=== PATIENT | female | born 1975 | race African-American/Black ===

== ENCOUNTER → 2016-12-02 | Outpatient (CLI) | payer OTHER ==
[~2016-12-02] VITALS: Ht 154.9 cm; Wt 88.1 kg
[~2016-12-02] MED LIST: ATOR-22 PO; ATV/1 PO; CHOL100010 PO; CONJ.6255 PO; CYM/30 PO; DULO60CA44 PO; ISOS30TA3 PO; METO1TAB69 PO; METO50TA16 PO; NRN/600 PO; QUET1TAB32 PO
[2016-12-02 14:28] VITALS: BP 151/90; PULSE 81; Ht 154.9 cm; Wt 88.1 kg
== END | disposition home or self-care (01) ==
LOC: C.NEUR 13:54
PROVIDERS: ATTEND Internal Medicine Pulmonary Disease
DX: G47.30 Sleep apnea, unspecified (principal)

== ENCOUNTER → 2017-01-17 | Outpatient (CLI) | payer OTHER ==
[~2017-01-17] MED LIST changes: +METO100T44 PO; -METO1TAB69 PO
--- NOTE | 2017-01-18 06:10 | PAP/PSG TECHNICIAN REPORT ---
[facility] Manufacturing Clerk Polysomnogram Report Study name: None Report date: 01/18/2017 Study date: 01/17/2017 Referring Physician: Bartolome Parker Pulmonary Name: SALVADOR JORGE Vivek Interpreting Physician: Aquilino Ladd M.D. Date of : 1975 Manufacturing Clerk: Libby Mckoy [facility]. Sex: Female Age: 41 StudyType: PSG Weight: 198 lbs Height: 41 years, Height 5' 1" Neck Circum:13.5inches BMI: 37.41 Medications: Duloxetine HCl 60mg, Gabapentin 600mg, Isosorbide 30mg, Latuda 20mg, Lisinopril 10mg, Metoprolol 100mg, Prempro 0.625-2.5mg, Rexulti 1mg, Simvastatin 20mg, Topiramate 50mg, Vit D3 Patient History Study started on room air with no ETCO2 monitoring in room #8. 41 yr old female here tonight for a possible split study if AHI>10 and there are 2 hours of sleep by the 1:30 am. She was diagnosed with JEFERSON with an AHI of 12.1 in 2014. She was treated with cpap but was noncompliant and stated that she could not use a full-face mask. Her ESS=20/24. Neck circ=13.5inches Parameters Monitored NPSG: E1-M2, E2-M1, Fp1-M2, Fp2-M1, F3-M2, F4-M2, F4-M1, C3-M2, C4-M2, C4-M1, O1-M2, O2-M2, O2-M1, T3-M2, T4-M1, P3-M2, P4-M1, CHIN1, CHIN2, HR, EKG, Legs, PFLOW, SNOR, FLOW, CFLOW, Tidal Volume, THOR, ABDO, SpO2, PLTH, CPRESS, ETCO2 Wave, ETCO2, pH Sleep Architecture Sleep Stages Time at Lights Off 8:47:22 PM STAGES Time (min.) TST (%) Time at Lights On 5:36:22 AM Wake 136.0 -- Total Recording Time (TRT) 529.00 min. N1 3.5 1 Total Sleep Period (TSP) 401.5 min. N2 201.0 51 Total Sleep Time (TST) 393.0min. N3 149.5 38 Awake Time 136.0 min. REM 39.0 10 Wake after Sleep Onset 49.5 min. Sleep Efficiency (SE) 74 % Sleep Onset Latency (LUIS FERNANDO) 86.5 min. Number of Stage 1 Shifts None Awakenings 4 Stage Changes 25 Number of REM periods 2 REM 39.0 10 REM Latency 119.0 min. NREM 354.0 90 Body Position Analysis Supine Right Left Side Prone Vertical Total Sleep Time (min.) 225.4 259.6 0.0 259.63 0.0 0.0 Total Sleep Time (%) 34% 66% 0% 66 0% N/A% Total Sleep Time REM (min.) 5.5 33.5 0.0 None 0.0 0.0 Total Sleep Time NREM (min.) 127.9 226.1 0.0 None 0.0 0.0 Intermittent Wake (min.) 92.0 44.0 0.0 None 0.0 0.0 Total Sleep Period (%) 35% None None None None None Arousals Myoclonus (PLM) * Events Count Index Events Count Index Spontaneous 3 0 Events Awake (PLMW) 71 31.3 Respiratory 2 0.5 Events Asleep w/ Arousal (PLMA) 0 0.0 PLM 0 0 Events Asleep w/o Arousal (PLMS) 20 3.1 Snoring 0 0 Total Asleep 20 3.1 Total 5 1 Total 91 10 Respiratory Analysis * CA OA MA CH H RERA Total Count 0 0 0 0 24 1 24 Index 0.0 0.0 0.0 0 3.7 0 3.8 Mean Duration 0.0 0.0 0.0 0.00 23.4 18.1 23.2 Longest Duration 0.0 0.0 0.0 0.00 0.0 18.1 40.5 Respiratory Event Summary Total Supine ~Supine Right Left Prone REM NREM Apneas Count 0 0 0 0 N/A N/A 0 0 Index 0.0 0 0 0.0 N/A N/A 0 0 Hypopneas (4% Desat) Count 24 4 20 20 N/A N/A 15 9 Index 3.7 1.8 5 4.6 N/A N/A 23.1 1.5 Apneas & All Hypopneas Count 24 4 20 20 N/A N/A 15 9 Index 3.7 2 5 5 N/A N/A 23.1 1.5 Respiratory Events (Food Service Clerk+All Hyp+RERA) Count 24 5 20 20 N/A N/A 15 9 Index 3.8 2 5 4.6 N/A N/A 23.1 1.7 Respiratory Related Arousal Count 2 5 1 1 N/A N/A 0 3 Index 0.5 1 0 0 N/A N/A 0 1 Snoring Analysis Supine Right Left Prone REM NREM Total Snore duration 121.7 min Snores count 1,131 3,691 N/A N/A 426 4,396 4,822 Snore mean duration 1.5 Sec Snores index 509 853 N/A N/A 655.4 745.1 736.2 TST with snoring (%) 31.0% Desaturation Event Summary: Minimum %SpO2 Event Count Mean/Min/Max Duration(sec.) Desaturation Index % Time In Bed > 90 39 31.4 / 6.0 / 60.0 4.6 96.2 86 - 90 1 9.5 / 9.5 / 9.5 3.2 3.6 81 - 85 0 N/A 0.0 0.1 76 - 80 0 N/A 0.0 0.1 71 - 75 0 N/A 0.0 0.0 66 - 70 0 N/A 0.0 0.0 61 - 65 0 N/A 0.0 0.0 56 - 60 0 N/A 0.0 0.0 51 - 55 0 N/A 0.0 0.0 < 50 0 N/A 0.0 0.0 Total REM NREM Awake <50% 0.0 min. 0.0 min. 0.0 min. 0.0 min. 51 - 60% 0.0 min. 0.0 min. 0.0 min. 0.0 min. 61 - 70% 0.0 min. 0.0 min. 0.0 min. 0.0 min. 71 - 80% 0.5 min. 0.3 min. 0.0 min. 0.2 min. 81 - 90% 19.3 min. 3.0 min. 15.9 min. 0.5 min. 91 - 100% 504.2 min. 35.8 min. 338.0 min. 130.5 min. Average 94 94 94 96 Minimum SpO2 77 78 87 77 Desaturation Event Index 4.4 23.1 2.2 4.9 # Desat. Events below 89% 12 6 3 3 Time(%) with Saturation below 89% 0.7 0.4 0.2 0.1 Time(min.) with Saturation below 89% 3.5 2.0 1.1 0.4 Time (mins) REM (mins) NREM (mins) % of TST SpO2 Below 90% 15 9 N6 1.8 SpO2 Below 88% 5 0 0 0 Heart Rate Analysis Min (bpm) Max (bpm) Average (bpm) Awake 62 90 75 NREM 60 90 69 REM 67 86 72 Overall 60 90 70 Supplemental O2 Values Minimum O2 level: None Value Start Time End Time Manufacturing Clerk Comments Mrs. Traylor slept in the right and supine positions. No cardiac arrhythmia or PLM's noted. No bruxism noted. Snoring was noted and scored as a 5 on a scale of 1 through 5. (0=no snoring, 5=snoring loud enough to be heard through a closed door or down the nolen way) She used the restroom once during the night. She stated that she slept well, better than usual. The final report will be interpreted and signed by a sleep physician. The completed physician report will then be placed in the patient medical record. Therapy (cm H2O) 0 TIB (min.) 529.0 TST (min.) 393.0 Sleep Onset (min.) 86.5 REM Onset From Sleep (min.) 119.0 Sleep Efficiency % 74 Wakefulness (%) 26 Wakefulness (min.) 136.0 NREM 1 (%) 1 NREM 1 (min.) 3.5 NREM 2 (%) 51 NREM 2 (min.) 201.0 NREM 3 (%) 38 NREM 3 (min.) 149.5 REM (%) 10 REM (min.) 39.0 # Arousals 5 Arousal Index 1 # Snore 4,822 Snore Index 736.2 AHI 3.7 AHI Supine 2 AHI Non-Supine 5 NREM AHI 1.5 REM AHI 23.1 RDI 3.8 # Obstructive Apnea 0 # Central Apnea 0 # Mixed Apnea 0 # Hypopneas 24 RERAs 1 Total Respiratory Events 26 Time Below SpO2 89% (min.) 3.0 Mean NREM SpO2 (%) 94 Mean REM SpO2 (%) 94 Mean Sleep SpO2 (%) 94 Min NREM SpO2 (%) 87 Min REM SpO2 (%) 78 Position Supine (min.) 225.4 Position Non-supine (min.) 259.6 LM Index Sleep 3.1 LM Index NREM 1.2 LM Index REM 20.0 Mean Heart Rate (bpm) 70 Min Heart Rate (bpm) 60
--- NOTE | 2017-01-19 16:55 | POLYSOMNOGRAPH REPORT ---
CLINICAL DATA: A 41-year-old female with a BMI of 37.[address] Parker with mild sleep apnea in 2015 treated with CPAP but noncompliant because she could not stand a full facemask. SLEEP ARCHITECTURE: Total sleep period was 401.5 minutes. Total sleep time was 393 minutes divided between 354 minutes of non-REM sleep and 39 minutes of REM sleep. Sleep onset latency was delayed at 86.5 minutes. REM latency was 119 minutes. Sleep efficiency was 74%. Wake after sleep onset was 49.5 minutes. Sleep consisted of stage N1 1%, N2 51%, N3 38%, REM 10%. AROUSAL DATA: Five arousals were recorded for an index of 1 per hour. PLM DATA: 20 limb movements during sleep were noted for an index of 3.1 per hour with arousal index of 0. RESPIRATORY DATA: There was no evidence of clinically significant sleep apnea/hypopnea. The AHI was 3.7. There were 24 hypopneic episodes. The mean duration of hypopnea was 23.4 seconds. OXIMETRY DATA: Mild nocturnal hypoxemia. Sleep oxygen theodore was 78% during REM. The mean saturation was 94%. Time below 88% was 5 minutes. EKG: Heart rates ranged from 60-90 beats per minute. No arrhythmias were noted. [facility]VANCED PRACTICE REGISTERED NURSE'S COMMENTS: The patient slept in the right and supine positions. Snoring was severe, rated 5 on a scale of 1-5. IMPRESSION: No evidence of clinically significant sleep apnea/hypopnea, nocturnal hypoxemia or abnormal limb movements during sleep to explain this patient's symptoms. RECOMMENDATIONS: The patient should continue to practice good sleep hygiene. Treatment with nasal steroids for snoring may be of benefit. Clinical correlation is needed. ANDREWS
== END | disposition home or self-care (01) ==
LOC: C.NEUR 20:00
PROVIDERS: ATTEND Internal Medicine Pulmonary Disease
DX: G47.30 Sleep apnea, unspecified (principal)

== ENCOUNTER → 2017-01-24 | Outpatient (CLI) | payer OTHER ==
[~2017-01-24] VITALS: Ht 154.9 cm; Wt 88.6 kg
[2017-01-24 15:21] VITALS: BP 170/108; PULSE 109; Ht 154.9 cm; Wt 88.6 kg
== END | disposition home or self-care (01) ==
LOC: C.NEUR 14:44
PROVIDERS: ATTEND Physician Assistant
DX: G47.30 Sleep apnea, unspecified (principal); G47.00 Insomnia, unspecified

== ENCOUNTER → 2017-01-31 | Outpatient (CLI) | payer OTHER ==
--- NOTE | 2017-02-02 17:20 | POLYSOMNOGRAPH REPORT ---
CLINICAL DATA: A 41-year-old female with BMI of 36.84, referred by Dr. Parker for evaluation of sleep apnea. The patient has very erratic sleep. She had a sleep study in 2014, which showed mild BARBARA with an AHI of 12.1, but did not comply with treatment. She had another sleep study several weeks ago which showed an AHI of 3.1. She still has symptoms of sleep apnea and thought that she would sleep better with the home study. On the evening of 02/01/2017, a home sleep apnea test was performed using the [employer] type 3 monitor. RECORDING RESULTS: Total recording time was 8.1 hours. The patient's monitoring time and estimated sleep time was 6.8 hours. RESPIRATORY DATA: DICTATION ENDS HERE.
--- NOTE | 2017-02-02 17:21 | POLYSOMNOGRAPH REPORT ---
CLINICAL DATA: A 41-year-old female with BMI of 36.84, referred by Dr. Parker for evaluation of possible sleep apnea. She has an erratic sleep schedule and states she only sleeps for a maximum of 2 hours and can go days without sleep. She had a sleep study in 2014, which showed mild sleep apnea with an AHI of 12.1, but she was noncompliant with treatment. She had another sleep study several weeks ago that showed an AHI of 3.1. She still had symptoms of sleep apnea and thought a home study would be better for her to do. On the evening of 02/01/2017, a home sleep apnea test was performed using a [employer] type 3 monitor. RECORDING RESULTS: Total recording time was 8.1 hours. The patient's monitoring time and estimated sleep time was 6.8 hours. RESPIRATORY DATA: Mild sleep apnea was documented. The MEJIA was 13.8. There were 35 obstructive, 2 mixed, and 4 central apneic episodes. There were 53 hypopneic episodes. The longest respiratory event was 44 seconds. OXIMETRY DATA: Nocturnal hypoxemia was seen. Oxygen theodore was 73%. Mean saturation was 97%. Time below 89% was 6 minutes. HEART RATE DATA: Heart rates ranged from 61-90 beats per minute. SNORING DATA: Snoring was recorded throughout the night. The patient stated on return of the equipment that she did not feel that she slept all. However, snoring was present throughout the test and apneas and hypopneas were seen especially at the end of the test which may have been during an episode of REM sleep. IMPRESSION: At least mild sleep apnea/hypopnea with nocturnal hypoxemia with an respiratory event index of 13.8 and oxygen theodore of 73%. RECOMMENDATIONS: The patient may benefit from weight loss, use of an oral appliance, or repeat sleep study with CPAP. Clinical correlation is needed. ANDREWS
== END | disposition home or self-care (01) ==
LOC: C.NEUR 09:00
PROVIDERS: ATTEND Physician Assistant
DX: G47.30 Sleep apnea, unspecified (principal); G47.00 Insomnia, unspecified

== ENCOUNTER → 2017-02-04 | Outpatient (CLI) | payer OTHER ==
[~2017-02-04] VITALS: Ht 154.9 cm; Wt 194.2 kg
[2017-02-04 13:18] VITALS: BP 160/95; PULSE 105; Ht 154.9 cm; Wt 194.2 kg
== END | disposition home or self-care (01) ==
LOC: C.NEUR 12:04
PROVIDERS: ATTEND Internal Medicine Pulmonary Disease
DX: G47.33 Obstructive sleep apnea (adult) (pediatric) (principal); G47.00 Insomnia, unspecified; F32.9 Major depressive disorder, single episode, unspecified

== ENCOUNTER → 2017-03-18 | Outpatient (CLI) | payer OTHER ==
--- NOTE | 2017-03-18 16:16 | MAMMOGRAPHY REPORT ---
BILATERAL DIGITAL SCREENING MAMMOGRAM TOMOSYNTHESIS WITH CAD: 03/18/2017 CLINICAL HISTORY: Routine screening. Patient has no complaints. TECHNIQUE: Breast tomosynthesis in addition to standard 2D mammography was performed. Current study was also evaluated with a Computer Aided Detection (CAD) system. COMPARISON: Comparison is made to exams dated: 09/26/2015 mammogram and 09/17/2015 mammogram - [facility]. BREAST COMPOSITION: There are scattered areas of fibroglandular density in both breasts. FINDINGS: No suspicious masses, calcifications, or areas of architectural distortion are noted in ei ther breast. There has been no significant interval change compared to prior exams. IMPRESSION: ACR BI-RADS CATEGORY 1: NEGATIVE There is no mammographic evidence of malignancy. A 1 year screening mammogram is recommended. The pa tient will receive written notification of the results. Approximately 10% of breast cancers are not detected with mammography. A negative mammographic report should not delay biopsy if a clinically suggestive mass is present. Helen Caro M.D. ah/:03/18/2017 15:20:14 Weekend Receptionist: Adele AVENDANO(R)(Jayjay), [facility] letter sent: Normal 1/2 BI-RADS Code: ACR BI-RADS Category 1: Negative
== END | disposition home or self-care (01) ==
LOC: C.MAMM 13:51
PROVIDERS: ATTEND Family Medicine
DX: Z12.31 Encounter for screening mammogram for malignant neoplasm of breast (principal)

== ENCOUNTER → 2017-04-01 | Outpatient (CLI) | payer OTHER ==
[~2017-04-01] VITALS: Ht 154.9 cm; Wt 84.3 kg
[2017-04-01 15:57] VITALS: BP 126/83; PULSE 97; Ht 154.9 cm; Wt 84.3 kg
== END | disposition home or self-care (01) ==
LOC: C.NEUR 14:55
PROVIDERS: ATTEND Physician Assistant
DX: G47.30 Sleep apnea, unspecified (principal)

== ENCOUNTER → 2017-06-02 | Outpatient (CLI) | payer OTHER ==
[~2017-06-02] MED LIST changes: -METO100T44 PO; +METO1TAB69 PO
[2017-06-02 13:30] LABS: HEMATOCRIT 40.1 % (37-47); MEAN CELL VOLUME 90.9 fL (80-100); MEAN CORPUSCULAR HEMOGLOBIN 29.5 pg (25-34); MEAN CORPUSCULAR HGB CONC 32.4 g/dl (32-36); MEAN PLATELET VOLUME 9.9 fL (7.4-10.4); PLATELET COUNT 345 K/uL (130-400); RED BLOOD COUNT 4.41 M/uL (4.2-5.4); WHITE BLOOD COUNT 6.17 K/uL (4.8-10.8)
[2017-06-02 13:49] LABS: ALT/SGPT 21 U/L (12-78); BLOOD UREA NITROGEN 8 mg/dl (7-18); BUN/CREATININE RATIO 7.1 (10-20); CALCIUM 9.4 mg/dl (8.5-10.1); CARBON DIOXIDE 29 mmol/L (21-32); CHLORIDE 109 mmol/L (98-107); CHOLESTEROL 277 mg/dl (0-200); GLUCOSE 84 mg/dl (70-99); POTASSIUM 3.4 mmol/L (3.5-5.1); SODIUM 142 mmol/L (136-145); TRIGLYCERIDES 62 mg/dl (0-150); VERY LOW DENSITY LIPOPROT CALC 12 mg/dl
[2017-06-02 13:59] LABS: ALB/GLOB RATIO 0.9 (0.9-2); ALKALINE PHOSPHATASE 58 U/L (45-117); AST/SGOT 15 U/L (15-37); CHOLESTEROL/HDL RATIO 4.9; FERRITIN 45.4 ng/ml (8.0-388.0); HDL CHOLESTEROL 57 mg/dl; LDL CHOLESTEROL CALCULATED 208 mg/dl
[2017-06-02 14:27] LABS: COMPLETE YES; EOSINOPHIL % 0.9 %; LYMPH ABS # 2.46 K/uL (1.2-3.4); LYMPHOCYTE % 39.8 %; NEUTROPHILS % 26.5 %; TOXIC GRANULATION 1+; VACUOLIZATION 1+; VARIANT LYM ABS # 1.53 K/uL; VARIANT LYMPHOCYTE % 24.8 %
--- NOTE | 2017-06-17 12:48 | CODING QUERY MEDICAL NECESSITY ---
SUPPORTING DIAGNOSIS NEEDED A supporting diagnosis is required for the test/procedure performed on this patient in order for us to be reimbursed by the patient's insurance. Please provide a supporting diagnosis for the following test/procedure listed below next to the test name along with your signature. *If there is no additional diagnosis for this patient that would support the following test/procedure please document that below next to the test/procedure. Test(s)/Procedure(s) that require a supporting diagnosis: * VITAMIN D, 25-HYDROXY DIAGNOSIS: Provider Signature: Date: Thank you Mckenzie Parry [employer] Once completed, please kindly fax back to [phone] For questions please call [phone]
== END | disposition home or self-care (01) ==
LOC: C.LAB1850 11:24
PROVIDERS: ATTEND Psychologist Clinical
DX: Z79.899 Other long term (current) drug therapy (principal); F33.3 Major depressive disorder, recurrent, severe with psychotic symptoms; Z13.29 Encounter for screening for other suspected endocrine disorder; E55.9 Vitamin D deficiency, unspecified

== ENCOUNTER → 2017-06-08 | Outpatient (CLI) | payer OTHER ==
[2017-06-08 17:42] LABS: ALT/SGPT 18 U/L (12-78); BLOOD UREA NITROGEN 11 mg/dl (7-18); BUN/CREATININE RATIO 10.3 (10-20); CALCIUM 8.9 mg/dl (8.5-10.1); CARBON DIOXIDE 29 mmol/L (21-32); CHLORIDE 113 mmol/L (98-107); CHOLESTEROL 225 mg/dl (0-200); GLUCOSE 86 mg/dl (70-99); POTASSIUM 3.5 mmol/L (3.5-5.1); SODIUM 147 mmol/L (136-145); TRIGLYCERIDES 80 mg/dl (0-150); VERY LOW DENSITY LIPOPROT CALC 16 mg/dl
[2017-06-08 17:53] LABS: ALKALINE PHOSPHATASE 64 U/L (45-117); AST/SGOT 14 U/L (15-37); CHOLESTEROL/HDL RATIO 4.2; HDL CHOLESTEROL 54 mg/dl; LDL CHOLESTEROL CALCULATED 155 mg/dl; THYROID STIMULATING HORMONE 0.749 uIu/ml (0.300-4.500)
== END | disposition home or self-care (01) ==
LOC: C.LABBC 13:33
PROVIDERS: ATTEND Physician Assistant Medical
DX: E78.5 Hyperlipidemia, unspecified (principal); I10 Essential (primary) hypertension

== ENCOUNTER → 2017-09-14 | Outpatient (CLI) | payer OTHER ==
[~2017-09-14] MED LIST changes: +METO100T44 PO; -METO1TAB69 PO
--- NOTE | 2017-09-14 10:57 | DIAGNOSTIC IMAGING REPORT ---
SI JOINTS 3 OR MORE VIEWS CLINICAL HISTORY: 42 years-old Female presenting with M54.16,M54.41, low back pain radiating down both legs. TECHNIQUE: Frontal and bilateral oblique views of the sacroiliac joints were obtained. COMPARISON: None. FINDINGS: Symmetric joint spaces. No evidence of erosion or osseous fusion across the sacroiliac joints. No abnormal widening. No advanced degenerative change evident. Lower lumbar spine and bony pelvis within normal limits. IMPRESSION: Normal-appearing sacroiliac joints. Electronically signed by: Wang Smith M.D. 09/14/2017 10:56 AM Dictated Date/Time: 09/14/2017 10:54 AM
--- NOTE | 2017-09-14 11:41 | DIAGNOSTIC IMAGING REPORT ---
LUMBAR SPINE 7 VIEWS CLINICAL HISTORY: Chronic low back pain. FINDINGS: AP, lateral, bilateral oblique, flexion, extension, and coned-down views of the lumbar spine are compared to study dated 09/17/2015. The skeletal structures are well mineralized. There is no radiographic evidence of fracture or malalignment. Vertebral body height and alignment are maintained. Small anterior osteophytes are seen throughout. No bony subluxation is seen on the flexion/extension views. The transverse and spinous processes are intact. There is no evidence of spondylolysis. Mild degenerative sclerosis is seen at L1-L2 and L2-L3. The intervertebral disc spaces appear maintained. The visualized bony pelvis appears intact. There is a nonobstructed abdominal bowel gas pattern. IMPRESSION: 1. No acute bony abnormality is seen involving the lumbosacral spine. 2. Minimal degenerative change as above. Electronically signed by: Matthew Ramos M.D. 09/14/2017 11:40 AM Dictated Date/Time: 09/14/2017 11:39 AM
== END | disposition home or self-care (01) ==
LOC: C.RAD1850 10:21
PROVIDERS: ATTEND Nurse Practitioner Family
DX: M54.16 Radiculopathy, lumbar region (principal); M54.41 Lumbago with sciatica, right side

== ENCOUNTER → 2017-09-23 | Outpatient (CLI) | payer OTHER ==
--- NOTE | 2017-09-23 08:33 | DIAGNOSTIC IMAGING REPORT ---
MRI LUMBAR SPINE W/O CONTRAST CLINICAL HISTORY: Back pain with right leg radiculopathy TECHNIQUE: Sagittal and axial T1, T2 and STIR images were obtained. COMPARISON STUDY: November 18, 2015 OBSERVATIONS: The vertebral bodies and posterior elements appear intact. There is no abnormal bony signal present to suggest a marrow replacement process. L1-2: No disc protrusions or extrusions. No evidence of spinal canal or neural foraminal compromise. L2-3: No disc protrusions or extrusions. No evidence of spinal canal or neural foraminal compromise. L3-4: No disc protrusions or extrusions. No evidence of spinal canal or neural foraminal compromise. L4-5: There is a minor circumferential disc bulge. There is no evidence of significant spinal or foraminal stenosis L5-S1: No disc protrusions or extrusions. No evidence of spinal canal or neural foraminal compromise. The conus medullaris and cauda equina appear normal. IMPRESSION: Minimal circumferential disc bulge at the L4-5 level. No focal herniations identified. No evidence of spinal or foraminal stenosis. Essentially normal MRI of the lumbar spine for age. Electronically signed by: Good Dailey M.D. 09/23/2017 8:32 AM Dictated Date/Time: 09/23/2017 8:28 AM
== END | disposition home or self-care (01) ==
LOC: C.MRIBC 07:26
PROVIDERS: ATTEND Physician Assistant
DX: M47.26 Other spondylosis with radiculopathy, lumbar region (principal)

== ENCOUNTER → 2017-10-13 | Outpatient (CLI) | payer OTHER ==
[~2017-10-13] VITALS: Ht 154.9 cm; Wt 188.1 kg
[2017-10-13 13:53] VITALS: BP 148/92; PULSE 77; Ht 154.9 cm; Wt 188.1 kg
== END | disposition home or self-care (01) ==
LOC: C.NEUR 13:40
PROVIDERS: ATTEND Physician Assistant
DX: G47.33 Obstructive sleep apnea (adult) (pediatric) (principal); R04.0 Epistaxis; Z86.69 Personal history of other diseases of the nervous system and sense organs

== ENCOUNTER → 2017-11-16 | Outpatient (CLI) | payer OTHER ==
[~2017-11-16] MED LIST changes: +OPTIRAY 320 IV PRN
--- NOTE | 2017-11-16 16:16 | DIAGNOSTIC IMAGING REPORT ---
ABDOMEN AND PELVIS CT WITH IV CONTRAST CT DOSE: 994.51 mGycm HISTORY: Acute right lower quadrant pain. TECHNIQUE: Multiaxial CT images of the abdomen and pelvis were performed following the use of intravenous contrast. A dose lowering technique was utilized adhering to the principles of ALARA. COMPARISON STUDY: Abdomen and pelvis CT 06/05/2008. FINDINGS: The lung bases are clear. No pneumoperitoneum. No pneumatosis. No fractures within the visualized osseous structures. Hypodensity adjacent to the falciform ligament and gallbladder fossa within the liver is consistent with focal fat. The gallbladder, pancreas, spleen, adrenal glands, and kidneys are unremarkable. No hydronephrosis. No pelvic free fluid. No retroperitoneal lymphadenopathy. The bladder is underdistended and not well evaluated. Uterus and ovaries are within normal limits. Normal appendix. No bowel wall thickening or obstruction. IMPRESSION: 1. Normal appendix. 2. No bowel wall thickening or obstruction. 3. The bladder is underdistended and not well evaluated. Electronically signed by: Alhaji Castro M.D. 11/16/2017 4:15 PM Dictated Date/Time: 11/16/2017 4:10 PM
== END | disposition home or self-care (01) ==
LOC: C.CTS 15:30
PROVIDERS: ATTEND Nurse Practitioner Adult Health
DX: R10.31 Right lower quadrant pain (principal)

== ENCOUNTER → 2018-01-05 | Outpatient (CLI) | payer OTHER ==
[~2018-01-05] VITALS: Ht 154.9 cm; Wt 88.3 kg
[~2018-01-05] MED LIST changes: -OPTIRAY 320 IV PRN
[2018-01-05 15:56] VITALS: BP 136/82; PULSE 90; Ht 154.9 cm; Wt 88.3 kg
== END | disposition home or self-care (01) ==
LOC: C.NEUR 14:01
PROVIDERS: ATTEND Physician Assistant
DX: G47.33 Obstructive sleep apnea (adult) (pediatric) (principal); G47.00 Insomnia, unspecified

== ENCOUNTER 2025-07-17 14:26 | Inpatient (IN) ==
--- NOTE | 2025-07-17 15:28 | Emergency Department Note ---
Impression & Plan Thought disorder, Auditory hallucinations patient will be admitted to [facility] ED Provider Note NAME: JORGE FRANCO AGE: 50 SEX: Female INFORMANT: Patient ED PROVIDER(S): Janay Castro DO CHIEF COMPLAINT: Visual and auditory hallucinations PLAN: Disposition: patient has been accepted to [facility] MEDICAL DECISION MAKING: This is a 50-year-old female patient with an extensive past medical history who presents to the emergency department with worsening mental health symptoms. She describes slight visual hallucinations over the past 1 week associated with some double vision. She said a very similar episode happened 15 years ago which required her to be admitted for inpatient psychiatric care. She became more concerned today because she developed auditory hallucinations which were telling her to harm herself. Patient does have a history of migraines and was prescribed new medication today but does not typically have visual changes with her headaches. The patient was medically cleared, although she remained with a high blood pressure. The patient states that this is typically her baseline blood pressure. The ED psychiatric telephonic nurse case manager met with the patient. She is willing to admit herself voluntarily for inpatient psychiatric care. She was evaluated by staff from [facility] and they have excepted her to their unit. Care/management discussed with: ED psychiatric telephonic nurse case manager Triage Nursing notes: reviewed and agree With them. Vital Signs: reviewed and remarkable for hypertension Additional History obtained from: her mental health telephonic nurse case manager who accompanies her here in the ER Chronic Medical/Social Conditions affecting care: bipolar disorder Differential Diagnosis: thought disorder, mood disorder, migraine, suicidal ideation HPI: 50 year old Female arrives for evaluation of auditory and visual hallucinations. presents to the emergency department with worsening mental health symptoms. She describes slight visual hallucinations over the past 1 week associated with some double vision. She said a very similar episode happened 15 years ago which required her to be admitted for inpatient psychiatric care. She became more concerned today because she developed auditory hallucinations which were telling her to harm herself. PAST MEDICAL HISTORY: See Below, PAST SURGICAL HISTORY: See Below, SOCIAL HISTORY: See Below, HOME MEDICATIONS: See list ALLERGIES: see list VITALS: See Below PHYSICAL EXAMINATION: HEENT: Head - normocephalic and atraumatic. Pupils are equal, round, and reactive to light. Extraocular eye muscles are intact, and sclera are anicteric. Nose - moist nasal mucosa without discharge. Mouth - moist buccal mucosa. Oropharynx is nonerythematous and there is no tonsillar exudate or edema noted. Neck: Supple; no Cervical lymphadenopathy noted. There is no JVD Heart: Regular rate and rhythm. There is a normal S1 and S2 with no murmurs, clicks, or gallops appreciated. Lungs: Clear to auscultation bilaterally with no wheezes, rales, or rhonchi. Abdomen: Soft, completely nontender, nondistended, with good bowel sounds. There are no palpable pulsatile masses or hepatosplenomegaly. There is no guarding, rigidity, or rebound noted. Extremities: No evidence of cyanosis, clubbing, or edema. There are easily palpable peripheral pulses. Skin: warm and dry with good turgor and no rashes. psych: Patient is cooperative on exam. She denies any drug or alcohol use. She does describe auditory and visual hallucinations that are commanding her to hurt herself. emergency department course: The patient was evaluated in room A-2. A complete history and physical was performed. Laboratory studies were drawn as above. Patient felt safe in that room with her mental health telephonic nurse case manager. Patient's blood pressure began to come down nicely on its own. ED psychiatric telephonic nurse case manager met with the patient. She is willing to admit herself voluntarily for inpatient psychiatric care. The staff from [facility] have evaluated her and have accepted her to their unit. Past Med/Surg History Problem List (Updated 07/18/25 @ 15:53 by Janay Castro DO) Auditory hallucinations (Acute) Thought disorder (Acute) Depression with suicidal ideation Night terrors Post-traumatic stress disorder Unspecified psychosis not due to a substance or known physiological condition Greater trochanteric bursitis Chronic lumbar pain Sacroiliitis Hypertrophy of both inferior nasal turbinates Psychophysiologic insomnia Hepatic steatosis Pelvic mass Abdominal pain H. pylori infection Early satiety Colon cancer screening Encounter for pre-operative examination Severe obesity (BMI >= 40) Hypercholesterolemia with LDL greater than 190 mg/dL Cervical radiculopathy Neuroforaminal stenosis of cervical spine Hypersomnia CAD (coronary artery disease) Neuropathic pain of both legs Obesity (BMI 30-39.9) states on metformin for weight management, denies diabetes Hyperlipidemia Shift work sleep disorder Sleep apnea Atypical chest pain Dizziness Prediabetes pt denies Hypertension Abnormal electrocardiogram Ventricular tachycardia hx - r/t stress and anxiety. no current issues Chronic insomnia Depression Anxiety Right lumbar radiculopathy (Acute) Obstructive sleep apnea (Acute) Major depression in partial remission (Acute) Lower extremity edema (Acute) Insomnia (Acute) Hypoxia Head injury (Acute) Fall (Acute) Dyslipidemia Chronic pain (Acute) Cervical strain (Acute) Bipolar disorder Auditory hallucination (Acute) Anxiety disorder Altered mental state Medical History Obstructive sleep apnea Migraine without status migrainosus Lumbar radiculopathy Insomnia Hypertension Hyperlipidemia Depression Bipolar disorder Auditory hallucination Atypical chest pain Sleep disturbances Premature ovarian failure Post-traumatic stress disorder Paroxysmal ventricular tachycardia Palpitation Nonspecific immunologic finding Menopausal disorder Low back pain Idiopathic peripheral neuropathy High risk medication use Epistaxis Elevated sedimentation rate Degenerative joint disease (DJD) of lumbar spine Axillary lymphadenopathy Amenorrhea Abnormal mammogram Medical marijuana use for anxiety/depression, back pain Degenerative disc disease Hyperlipidemia Hypertension Sleep apnea bipap Endometriosis determined by laparoscopy hx Psychosis pt denies Surgical History History of cardiac cath History of colonoscopy History of appendectomy History of bilateral tubal ligation S/P epidural steroid injection History of heart artery stent x1 at [facility] 10/2021 S/P section x5 History of cardiac catheterization 10/2021- chest pain - at [facility] with x1 stent. 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 Feels Safe at Home: Yes Childhood Exposure to Second-Hand Smoke: Yes Dental Care, Regularly: Yes Physical Activity Frequency: Does not Exercise Seatbelt Use: always Sunscreen Use: No Gender Identity: Female Assistive Devices: Glasses Allergies Allergies Allergy/AdvReac Type Severity Reaction Status Date / Time latex Allergy Severe localized Verified 07/17/25 18:17 Rash venlafaxine AdvReac Mild nausea and Verified 07/17/25 18:17 vomiting Home Meds Home Medications Medication Instructions Recorded Confirmed aspirin 81 mg tablet,delayed 81 mg PO QAM 05/25/23 07/17/25 release lorazepam 0.5 mg tablet (Ativan) 0.5 mg PO DAILY Anxiety 07/11/25 07/17/25 fluoxetine 10 mg capsule 10 mg PO DAILY 07/17/25 07/17/25 semaglutide (weight loss) 0.5 0.5 mg subcut WK 07/17/25 07/17/25 mg/0.5 mL subcutaneous pen injector (Zachary) Previous Rx's Medication Instructions Recorded metoprolol succinate 100 mg 150 mg (1.5 x 100 mg) PO QAM #135 01/25/25 tablet,extended release 24 hr tabs pantoprazole 40 mg tablet,delayed 40 mg PO DAILY #90 tabs 01/25/25 release rosuvastatin 40 mg tablet 40 mg PO HS #90 tabs 01/25/25 ranolazine 500 mg tablet,extended 500 mg PO BID #180 tabs 05/13/25 release,12 hr clopidogrel 75 mg tablet 75 mg PO DAILY #90 tabs 06/02/25 metformin 500 mg tablet 500 mg PO DAILY #90 tabs 06/18/25 isosorbide mononitrate 60 mg 120 mg (2 x 60 mg) PO BID #60 tabs 06/28/25 tablet,extended release 24 hr nitroglycerin 0.4 mg sublingual 0.4 mg sublingual Q5M PRN chest 07/09/25 tablet pain #10 tabs diltiazem HCl 300 mg capsule,24 300 mg PO DAILY #30 caps 07/16/25 hr,extended release cyanocobalamin (vitamin B-12) 1,000 mcg PO DAILY #90 caps 07/17/25 1,000 mcg capsule ferrous sulfate 325 mg (65 mg 325 mg PO Q2D #45 tabs 07/17/25 iron) tablet olmesartan 40 mg tablet 40 mg PO DAILY #90 tabs 07/17/25 rimegepant 75 mg disintegrating 75 mg PO Q OTHER DAY #15 tabs 07/17/25 tablet (Nurtec ODT) Results & Data (ED) Vital Signs Vital Signs - 24 hr 07/17/25 16:24 Pulse Rate [Finger] 70 Respiratory Rate 14 Blood Pressure [Right Arm] 169/124 H Blood Pressure Mean [Right Arm] 139 Pulse Oximetry 100 Oxygen Delivery Method Room Air Laboratory Data 07/17/25 16:15 07/17/25 16:15 Lab Results 07/17/25 07/17/25 Range/Units 15:50 16:15 WBC 7.50 (4.8-10.8) K/ul RBC 4.68 (4.20-5.40) M/uL Hgb 14.1 (12.0-16.0) g/dl Hct 41.7 (37.0-47.0) % MCV 89.1 (80.0-100.0) fL MCH 30.1 (25.0-34.0) pg MCHC 33.8 (32.0-36.0) g/dL RDW Std Deviation 43.5 (36.4-46.3) fL RDW Coeff of Chantal 13.3 (11.5-14.5) % Plt Count 296 (130-400) K/uL MPV 9.0 L (9.4-12.4) fL Immature Gran % (Auto) 0.1 % Neut % (Auto) 49.8 % Lymph % (Auto) 42.1 % Wetzel % (Auto) 7.3 % Eos % (Auto) 0.3 % Baso % (Auto) 0.4 % Neut # (Auto) 3.73 (1.40-6.50) K/uL Lymph # (Auto) 3.16 (1.20-3.40) K/uL Wetzel # (Auto) 0.55 (0.11-0.59) K/uL Eos # (Auto) 0.02 (0.00-0.50) K/uL Baso # (Auto) 0.03 (0.00-0.20) K/uL Immature Gran # (Auto) 0.01 (0.01-0.20) K/uL Sodium 140 (136-145) mmol/L Potassium 3.4 L (3.5-5.1) mmol/L Chloride 105 (98-107) mmol/L Carbon Dioxide 26 (21-32) mmol/L Anion Gap 9 (3-11) BUN 7 (6-23) mg/dl Creatinine 0.96 (0.6-1.2) mg/dl Est Cr Clr Drug Dosing 66.1 ml/min eGFR 71.19 BUN/Creatinine Ratio 7.3 L (10-20) Glucose 88 (70-99(Fasting)) mg/dl Calcium 8.9 (8.6-10.3) mg/dl Total Bilirubin 0.5 (0.2-1.0) mg/dl AST 13 (13-39) U/L ALT 11 (7-52) U/L Alkaline Phosphatase 60 (34-104) U/L Total Protein 7.0 (6.0-8.3) gm/dl Albumin 3.5 (3.4-5.0) gm/dl Globulin 3.5 (2.5-4.0) gm/dl Albumin/Globulin Ratio 1.0 (0.9-2) TSH 0.944 (0.300-4.500) uIu/ml Urine Color Yellow Urine Appearance Clear (Clear) Urine pH 8.0 H (4.5-7.5) Ur Specific [place] 1.007 (1.000-1.030) Urine Protein Negative (Negative) Urine Glucose (UA) Negative (Negative) Urine Ketones Negative (Negative) Urine Blood Negative (Negative) Urine Nitrite Negative (Negative) Urine Bilirubin Negative (Negative) Urine Urobilinogen Negative (Negative) Ur Leukocyte Esterase 2+ H (Negative) Urine WBC (Auto) 0-5 (0-5) /hpf Urine RBC (Auto) 0-2 (0-2) /hpf U Hyaline Cast (Auto) 0-2 (0-2) /lpf U Epithel Cells (Auto) 0-2 (0-2) /hpf Urine Bacteria (Auto) None Seen (None Seen) Urine Comment Salicylates < 3.0 L (3.0-30) mg/dl Urine Opiates Screen Neg (Neg) Ur Methadone, Qual Neg (Neg) Urine Fentanyl Screen Neg (Neg) Acetaminophen < 3 L (10-30) ug/ml Urine Barbiturates Neg (Neg) Ur Phencyclidine (PCP) Neg (Neg) U Amphetamin/Meth Scrn Neg (Neg) MDMA (Ecstasy) Screen Neg (Neg) U Benzodiazepines Scrn Neg (Neg) Ur Cocaine Metabolite Neg (Neg) U Marijuana (THC) Screen Neg (Neg) Ethyl Alcohol mg/dL < 10.0 (<10.0) mg/dl SARS-CoV-2, RNA, NAAT NEGATIVE (NEGATIVE) Administered Medications Acetaminophen (Acetaminophen 325 Mg Tab) 650 mg PO Q4H PRN PRN Reason: Headache or Minor Fever Stop: 08/16/25 19:44 Last Admin: 07/17/25 20:15 Dose: 650 mg Documented By: claudia Aripiprazole (Aripiprazole 5 Mg Tab) 2.5 mg PO BID PRN PRN Reason: Psychosis Stop: 08/16/25 19:49 Last Admin: 07/17/25 20:14 Dose: 2.5 mg Documented By: claudia Aspirin (Aspirin 81 Mg Ectab) 81 mg PO QAM GURMEET Stop: 08/17/25 08:59 Last Admin: 07/18/25 08:56 Dose: 81 mg Documented By: ADE Clopidogrel Bisulfate (Clopidogrel Bisulfate 75 Mg Tab) 75 mg PO DAILY GURMEET Stop: 08/17/25 08:59 Last Admin: 07/18/25 08:55 Dose: 75 mg Documented By: ADE Cyanocobalamin (Cyanocobalamin (B-12) 500 Mcg Tablet) 1,000 mcg PO DAILY GURMEET Stop: 08/17/25 08:59 Last Admin: 07/18/25 08:55 Dose: 1,000 mcg Documented By: ADE Fluoxetine HCl (Fluoxetine Hcl 10 Mg Cap) 10 mg PO DAILY GURMEET Stop: 08/17/25 08:59 Last Admin: 07/18/25 08:56 Dose: 10 mg Documented By: ADE Isosorbide Mononitrate (Isosorbide Wetzel Extended Rel 60 Mg Tabcr) 120 mg PO BID GURMEET Stop: 08/17/25 08:59 Last Admin: 07/18/25 08:55 Dose: 120 mg Documented By: ADE Lorazepam (Lorazepam 0.5 Mg Tab) 0.5 mg PO HS GURMEET Stop: 08/16/25 21:59 Last Admin: 07/17/25 21:54 Dose: 0.5 mg Documented By: ZAY Losartan Potassium (Losartan Potassium 50 Mg Tab) 100 mg PO DAILY GURMEET Stop: 08/17/25 08:59 Last Admin: 07/18/25 08:56 Dose: 100 mg Documented By: ADE Metformin HCl (Metformin Hcl 500 Mg Tab) 500 mg PO HS GURMEET Stop: 08/16/25 21:59 Last Admin: 07/17/25 21:17 Dose: 500 mg Documented By: RADHA Nitroglycerin (Nitroglycerin Sl 0.4 Mg/Tab Tab) 0.4 mg SL Q5M PRN PRN Reason: chest pain Stop: 08/16/25 20:41 Last Admin: 07/17/25 21:08 Dose: 0.4 mg Documented By: DANGELO Pantoprazole Sodium (Pantoprazole 40 Mg Tab) 40 mg PO DAILY GURMEET Stop: 08/17/25 08:59 Last Admin: 07/18/25 08:55 Dose: 40 mg Documented By: ADE Ranolazine (Ranolazine 500 Mg Er Tab) 500 mg PO BID GURMEET Stop: 08/16/25 20:59 Last Admin: 07/18/25 08:55 Dose: 500 mg Documented By: Admin: 07/17/25 21:16 Dose: 500 mg Documented By: RADHA Rosuvastatin Calcium (Rosuvastatin Calcium 20 Mg Tab) 40 mg PO HS GURMEET Stop: 08/16/25 21:59 Last Admin: 07/17/25 21:17 Dose: 40 mg Documented By: RADHA Discontinued Medications Diltiazem HCl (Diltiazem Hcl 300 Mg Capcr) 300 mg PO HS STA Stop: 07/17/25 21:01 Last Admin: 07/17/25 21:16 Dose: 300 mg Documented By: RADHA Isosorbide Mononitrate (Isosorbide Wetzel Extended Rel 60 Mg Tabcr) 120 mg PO BID STA Stop: 07/17/25 20:43 Last Admin: 07/17/25 21:16 Dose: 120 mg Documented By: RADHA Metoprolol Succinate (Metoprolol Succ 50mg Ext Rel Tab) 150 mg PO HS STA Stop: 07/17/25 20:43 Last Admin: 07/17/25 21:16 Dose: 150 mg Documented By: RADHA Discharge Plan Visit Data Chief Complaint: Mental Health Evaluation Stated Complaint: HEARING VOICES SEEING THINGS TALKING TO DOG ED Provider: Janay Castro Discharge Problem: Thought disorder, Auditory hallucinations Patient Disposition: Admitted As Inpatient Condition: Fair Discharge Instructions Interventions: ED Discharge Assessment Last Done: 07/17/25 19:30
[2025-07-17 16:01] LABS: Appearance Urine Clear (Clear); Bacteria Urine Automated None Seen (None Seen); Cast Urine Automated 0-2 /lpf (0-2); Epithelial Cell Urine Auto 0-2 /hpf (0-2); Glucose Urine UA Negative (Negative); RBC Urine Automated 0-2 /hpf (0-2); WBC Urine Automated 0-5 /hpf (0-5)
[2025-07-17 16:20] LABS: Amphetamines+Metham, Urine Neg (Neg); MDMA (Ecstacy), Urine Neg (Neg); Marijuana, Urine Neg (Neg)
[2025-07-17 16:39] LABS: Hematocrit (blood only) 41.7 % (37.0-47.0); Hemoglobin 14.1 g/dl (12.0-16.0); Immature Granulocytes # (auto) 0.01 K/uL (0.01-0.20); Immature Granulocytes % (auto) 0.1 %; Mean Corpuscular Hemoglobin 30.1 pg (25.0-34.0); Mean Corpuscular Volume 89.1 fL (80.0-100.0); Platelet Count 296 K/uL (130-400); RDW Standard Deviation 43.5 fL (36.4-46.3); Red Blood Count 4.68 M/uL (4.20-5.40); White Blood Count 7.50 K/ul (4.8-10.8)
[2025-07-17 16:51] LABS: Albumin Level 3.5 gm/dl (3.4-5.0); Anion Gap 9.0 (3-11); Bilirubin,Total 0.5 mg/dl (0.2-1.0); Calcium 8.9 mg/dl (8.6-10.3); Carbon Dioxide 26.0 mmol/L (21-32); Chloride 105.0 mmol/L (98-107); Potassium 3.4 mmol/L (3.5-5.1); Sodium 140.0 mmol/L (136-145)
[2025-07-17 16:57] LABS: Acetaminophen < 3 ug/ml (10-30); Alanine Aminotransferase 11.0 U/L (7-52); Albumin Globulin Ratio 1.0 (0.9-2); Alkaline Phosphatase 60.0 U/L (34-104); Blood Urea Nitrogen 7.0 mg/dl (6-23); Creatinine Clr Calc Pharmacy 66.1 ml/min; Globulin 3.5 gm/dl (2.5-4.0); Glucose 88.0 mg/dl (70-99(Fasting)); Salicylate < 3.0 mg/dl (3.0-30); Total Protein 7.0 gm/dl (6.0-8.3)
[2025-07-17 17:11] LABS: Thyroid Stimulating Hormone 0.944 uIu/ml (0.300-4.500)
[2025-07-17] MEDS ORDERED: MAGNESIUM HYDROXIDE SUSP 30 ML UDC PO PRN (19:45)
[2025-07-17] MEDS ORDERED: SODIUM CHLORIDE 0.65% NA SOLN 45 ML (OCEAN) PRN (19:45)
[2025-07-17] MEDS ORDERED: ALUMINUM/MAGNESIUM SUSP 30 ML UDC PO PRN (19:45)
[2025-07-17] MEDS ORDERED: BISMUTH SUBSALICYLATE 262 MG CHEW PO PRN (19:45)
[2025-07-17] MEDS: ARIPiprazole 5 MG TAB PO PRN (20:14)
[2025-07-17] MEDS: ACETAMINOPHEN 325 MG TAB PO PRN (20:15)
[2025-07-17] MEDS: NITROGLYCERIN SL 0.4 MG/TAB TAB SL PRN (21:08)
[2025-07-17] MEDS: ISOSORBIDE MONO EXTENDED REL 60 MG TABCR PO STA (21:16)
[2025-07-17] MEDS: RANOLAZINE 500 MG ER TAB PO SCH (21:16)
[2025-07-17] MEDS: METOPROLOL SUCC 50MG EXT REL TAB PO STA (21:16)
[2025-07-17] MEDS: ROSUVASTATIN CALCIUM 20 MG TAB PO SCH (21:17)
[2025-07-17] MEDS: LORazepam 0.5 MG TAB PO SCH (21:54)
--- NOTE | 2025-07-18 08:53 | History & Physical ---
Date of Service July 18, 2025 Impression / Recommendations Impression JORGE FRANCO is a 50-year-old woman who currently lives in [place] alone, has a history of chronic hallucinations, depression, anxiety, PTSD, possible bipolar disorder, and was admitted on 07/17/25 19:36 on a 201 voluntary commitment for psychosis. Diagnostically consistent with unspecified psychosis with differential including acute exacerbation of primary psychotic disorder vs exacerbation of PTSD versus mood disorder or MDD with psychotic features vs substance-withdrawal after stopping cannabis use recently. No current symptoms to suggest hypomania nor rosa elena. In terms of her insomnia has a history of BARBARA and unclear CPAP adherence which if untreated can certainly contribute to insomnia and worsen depression. Discussed medication treatment options in detail. Discussed risks, benefits and alternatives. Patient would like to start and consented to doxazosin for off- label use for night terrors/PTSD. Will hold off on starting this until reviewing with cardiology given potential risk for increasing myocardial demand. Will consider increasing fluoxetine versus alternative trial such as duloxetine which could help with pain symptoms versus alternative SSRI to lessen risk for CYP interactions with her blood thinner. Will review outpatient records to determine what has been trialed in the past, sertraline is typically a preferred option with cardiac co-morbid conditions. She consents to continuing her other medications for her cardiac, BP, weight loss indications. Reviewed side effects including but not limited to: GI, LANDIS with fluoxetine and low BP/syncope with doxazosin and sedation/fall risk/confusion/addictive potential with lorazepam. MNPR-hallucinations, paranoia Overall I spent a total of 75 minutes for this admission including review of chart records, review of labwork, direct evaluation of the patient, counseling the patient, ordering medication, risk assessment, discussion with the psychiatric liason RN and documentation in the electronic health record. (1) Unspecified psychosis not due to a substance or known physiological condition: (2) Auditory hallucination: (3) Depression with suicidal ideation: (4) Depression: (5) Anxiety disorder: (6) Post-traumatic stress disorder: (7) Night terrors: Plan 07/18/2025: The patient was admitted to the [facility] ([facility] mental health unit) on q15 min checks (behavioral with suicide precautions) for safety. The patient will participate in group, recreational, and milieu therapies and will be offered additional individual and family sessions as clinically appropriate. -Consider starting doxazosin 2mg HS, will review with cardiology -Continue fluoxetine 10mg daily for now -Continue Lorazepam 0.5mg HS -Work to get records from her outpatient psychiatric arnp to review past psychiatric medication trials Inventory Assets Strengths: supportive relationships, willing to get treatment Needs: safety and stabilization, medication adjustment, additional coping skills, increased outpatient services Suicide Risk Level Suicide Risk Level: High-Moderate (q15 min suicide checks) (ego dystonic hallucinations with SI but feels safe in the hospital and feels able to ask for support) Risk Factors Assessment Male: No : No Do You Have Access To A Gun?: No Health Problems: Yes Mental Health Diagnoses: Yes Substance Use Disorders: No Previous Attempt: No Family History of Suicide: No Previous Psychiatric Hospitalization: Yes Hopelessness: No Protective Factors Assessment Responsible for Young Children: No Employed: No Stable Relationships: Yes Supportive Family: Yes Good Rapport with Provider: Yes Psychiatric History Identifying Data JORGE FRANCO is a 50-year-old woman who currently lives in [place] alone, has a history of chronic hallucinations, depression, anxiety, PTSD, possible bipolar disorder, and was admitted on 07/17/25 19:36 on a 201 voluntary commitment for psychosis. Chief Complaint "That scared me". History of Present Illness Endy presents for psychiatric admission following escalating auditory hallucinations including command voices telling her to kill herself, occurring in the context of worsening depression and financial stress over the past month. She reports hearing "a lot of people talking at one time" which has been ongoing for many years and for which she has been managing through therapy and various coping strategies including listening to music and watching TikTok videos to "tune out the noises in my head". However last Tuesday she experienced a significant escalation when she awoke in the middle of the night and the voices told her to kill herself which she does not want to do. She states this has never happened before and "scared the crap out of me". Following this she reached out to her cupola patcher helper, therapist and has been getting calls from the crisis hotline who have been checking on her daily since then. Her symptoms escalated further yesterday when she reports hearing her dog telling her to "shut up" after she was talking to him which was new and concerning and caused her to reach out to her manager case management and ask to come to the hospital. Her children are supportive and her son recently removed all the knives from her home given the increase in her voices to ensure her safety. She denies thoughts of suicide and states she would "never do that, I got my kids. I can't leave them" but is understandably distressed by the voices telling her to kill herself. She does not feel she would act on these voices but is feeling increasingly overwhelmed by their presence especially when she also heard her dog speak. She also reportedly been more anxious and paranoid and not wanting to leave her house except for appointments. Prior to this exacerbation Endy has been managing her psychiatric symptoms with medical marijuana which improved her pain, sleep, and anxiety and prevented panic attacks for over 2 years. However it was recommended she stop this due to weight gain. Since stopping the medical marijuana she has found her depression has worsened and a few days ago her cupola patcher helper started her on fluoxetine 10 mg for depression. She has difficulty recalling past psychiatric medication trials but reports that she has tried a lot and they typically work for about 2 months before becoming ineffective stating "none of them work" and that her body seems to "kick it out". Her depression appears to have worsened following the return of nightmares related to her PTSD which she recalls intensifying about 2 months ago. She feels her nightmares are related to her PTSD and occur a few times per week and at times can cause significant sleep disruption. Current stressors include significant financial difficulties from being unable to work since August 2024 due to her cardiac condition (he has previously required 4 stents and has 1/5 procedure scheduled for the end of this month in [place]) he as well as worsening back and leg pain. She has applied for disability but was initially denied and so is currently without income and depends on her children to help pay her bills. She experiences chronic pain from muscle damage in both legs and back pain currently managed through pain clinic injections but she notes this only provides temporary relief lasting 1 to 2 days. She notes that 3 weeks ago she experienced a sharp pain in her back during pain management exercises had a p ossible syncopal episode after which her taste changed and now she feels like the only things that taste good to her are fruit and ice cream and vegetables. Currently wearing a heart monitor due to syncopal event last month. Cardiac cath scheduled for next month. She is currently prescribed psychiatric medication of fluoxetine 10mg daily and lorazepam 0.5mg HS. Psychiatric ROS notable for possible history of hypomania with periods of poor sleep and psychosis but unclear if any other symptoms. History of psychosis with similar escalation about 15 years ago. 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 aquino therapy at [facility] psych clinic with Dang Harris Previous Psych Admissions: [facility] 15 years ago Do You Have Access To A Gun?: No History of Previous Suicide Attempt: No Past Medication Trials: multiple but she cannot recall recently switched from trazodone to fluoxetine Allergies Allergy/AdvReac Type Severity Reaction Status Date / Time latex Allergy Severe localized Verified 07/17/25 18:17 Rash venlafaxine AdvReac Mild nausea and Verified 07/17/25 18:17 vomiting Home Medications Medication Instructions Recorded Confirmed Type aspirin 81 mg tablet,delayed 81 mg PO QAM 05/25/23 07/17/25 History release metoprolol succinate 100 mg 150 mg (1.5 x 100 mg) PO QAM #135 01/25/25 07/17/25 Rx tablet,extended release 24 hr tabs pantoprazole 40 mg tablet,delayed 40 mg PO DAILY #90 tabs 01/25/25 07/17/25 Rx release rosuvastatin 40 mg tablet 40 mg PO HS #90 tabs 01/25/25 07/17/25 Rx ranolazine 500 mg tablet,extended 500 mg PO BID #180 tabs 05/13/25 07/17/25 Rx release,12 hr clopidogrel 75 mg tablet 75 mg PO DAILY #90 tabs 06/02/25 07/17/25 Rx metformin 500 mg tablet 500 mg PO DAILY #90 tabs 06/18/25 07/17/25 Rx isosorbide mononitrate 60 mg 120 mg (2 x 60 mg) PO BID #60 tabs 06/28/25 07/17/25 Rx tablet,extended release 24 hr nitroglycerin 0.4 mg sublingual 0.4 mg sublingual Q5M PRN chest 07/09/25 07/17/25 Rx tablet pain #10 tabs lorazepam 0.5 mg tablet (Ativan) 0.5 mg PO DAILY Anxiety 07/11/25 07/17/25 History diltiazem HCl 300 mg capsule,24 300 mg PO DAILY #30 caps 07/16/25 07/17/25 Rx hr,extended release cyanocobalamin (vitamin B-12) 1,000 mcg PO DAILY #90 caps 07/17/25 07/17/25 Rx 1,000 mcg capsule ferrous sulfate 325 mg (65 mg 325 mg PO Q2D #45 tabs 07/17/25 07/17/25 Rx iron) tablet fluoxetine 10 mg capsule 10 mg PO DAILY 07/17/25 07/17/25 History olmesartan 40 mg tablet 40 mg PO DAILY #90 tabs 07/17/25 07/17/25 Rx rimegepant 75 mg disintegrating 75 mg PO Q OTHER DAY #15 tabs 07/17/25 07/17/25 Rx tablet (Nurtec ODT) semaglutide (weight loss) 0.5 0.5 mg subcut WK 07/17/25 07/17/25 History mg/0.5 mL subcutaneous pen injector (Wegovy) Family History Family History of: Doesn't Know Alcohol History Hx of Alcohol Use Over the Past 12 Months: No (Quit drinking 10 years ago.) AUDIT Total Score: 0 Smoking Use Have You Smoked or Used Tobacco Products in the Last 30 Days: No tobacco type: cigarettes Smoking Status: Never smoker Smoking packs per day: 0 Substance History Hx of Prescription Med Misuse Over the Past 12 Months: No Hx of Over the Counter Med Misuse Over the Past 12 Months: No Hx of Inhalent Misuse Over the Past 12 Months: No Hx of Organic Substance Use Over the Past 12 Months: No Hx of Illegal Substances/Street Drug Use Over Past 12 Months: No Problems as a Result of Past Substance Use: None Identified Problems as a Result of Past Substance Use Comments: 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 was using medical marijuana but stopped due to weight gain Personal History Living Arrangements: Apartment 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) Employment Status: Unemployed Number Of Children: 5 Beliefs That Will Affect Care: None Current Legal Problems: No Hx Traumatic Life Events: Yes Patient History Medical History Obstructive sleep apnea Migraine without status migrainosus Lumbar radiculopathy Insomnia Hypertension Hyperlipidemia Depression Bipolar disorder Auditory hallucination Atypical chest pain Sleep disturbances Premature ovarian failure Post-traumatic stress disorder Paroxysmal ventricular tachycardia Palpitation Nonspecific immunologic finding Menopausal disorder Low back pain Idiopathic peripheral neuropathy High risk medication use Epistaxis Elevated sedimentation rate Degenerative joint disease (DJD) of lumbar spine Axillary lymphadenopathy Amenorrhea Abnormal mammogram Medical marijuana use for anxiety/depression, back pain Degenerative disc disease Hyperlipidemia Hypertension Sleep apnea bipap Endometriosis determined by laparoscopy hx Psychosis pt denies Surgical History History of cardiac cath History of colonoscopy History of appendectomy History of bilateral tubal ligation S/P epidural steroid injection History of heart artery stent x1 at [facility] 10/2021 S/P section x5 History of cardiac catheterization 10/2021- chest pain - at [facility] with x1 stent. 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 Feels Safe at Home: Yes Childhood Exposure to Second-Hand Smoke: Yes Dental Care, Regularly: Yes Physical Activity Frequency: Does not Exercise Seatbelt Use: always Sunscreen Use: No Gender Identity: Female Assistive Devices: Glasses Review of Systems Review of Systems: All systems reviewed & are unremarkable except as noted in HPI & below Physical Exam Psychiatric: Orientation: alert, oriented x 3 and + guarded Apperance: appropriately dressed and appropriately groomed Eye Contact: + fair eye contact Motor Behavior: no abnormal motor movements Speech: normal rate/rhythm/volume of speech Affect: + blunted affect Mood: + depressed mood and + anxious mood Thought Process: goal directed thought process and + concrete thought process Thought Content: + paranoid Suicidal Thoughts: denies suicidal plan and denies suicidal intent; + reports suicidal thoughts (ego-dystonic from hallucinations) Homicidal Thoughts: denies homicidal thoughts Hallucinations: + auditory hallucinations, + visual hallucinations and + gustatory hallucinations (wonder if contributing to changes in taste?) Cognition: recent memory grossly intact, remote memory grossly intact, attention grossly intact and language grossly intact Estimated Intelligence: consistent with education level Insight: + fair insight Judgment: + fair judgement Vital Signs (Past 24 Hours): Last Vital Signs Temp 36.8 C 07/17/25 19:54 Pulse 71 07/18/25 06:27 Resp 18 07/18/25 06:27 BP 114/74 07/18/25 06:27 Pulse Ox 98 07/18/25 06:27 O2 Del Method Room Air 07/18/25 06:27 Exam Statement: A physical exam was performed in the ED by Dr. Castro for the purposes of medical clearance. I accept that physical as correct and adequate for the purposes of the inpatient physical exam. Results & Data ([facility]) Laboratory Results Laboratory Results - last 24 hr 07/17/25 07/17/25 15:50 16:15 WBC 7.50 RBC 4.68 Hgb 14.1 Hct 41.7 MCV 89.1 MCH 30.1 MCHC 33.8 RDW Std Deviation 43.5 RDW Coeff of Chantal 13.3 Plt Count 296 MPV 9.0 L Immature Gran % (Auto) 0.1 Neut % (Auto) 49.8 Lymph % (Auto) 42.1 [place] % (Auto) 7.3 Eos % (Auto) 0.3 Baso % (Auto) 0.4 Neut # (Auto) 3.73 Lymph # (Auto) 3.16 [place] # (Auto) 0.55 Eos # (Auto) 0.02 Baso # (Auto) 0.03 Immature Gran # (Auto) 0.01 Sodium 140 Potassium 3.4 L Chloride 105 Carbon Dioxide 26 Anion Gap 9 BUN 7 Creatinine 0.96 Est Cr Clr Drug Dosing 66.1 eGFR 71.19 BUN/Creatinine Ratio 7.3 L Glucose 88 Calcium 8.9 Total Bilirubin 0.5 AST 13 ALT 11 Alkaline Phosphatase 60 Total Protein 7.0 Albumin 3.5 Globulin 3.5 Albumin/Globulin Ratio 1.0 TSH 0.944 Urine Color Yellow Urine Appearance Clear Urine pH 8.0 H Ur Specific [place] 1.007 Urine Protein Negative Urine Glucose (UA) Negative Urine Ketones Negative Urine Blood Negative Urine Nitrite Negative Urine Bilirubin Negative Urine Urobilinogen Negative Ur Leukocyte Esterase 2+ H Urine WBC (Auto) 0-5 Urine RBC (Auto) 0-2 U Hyaline Cast (Auto) 0-2 U Epithel Cells (Auto) 0-2 Urine Bacteria (Auto) None Seen Urine Comment Salicylates < 3.0 L Urine Opiates Screen Neg Ur Methadone, Qual Neg Urine Fentanyl Screen Neg Acetaminophen < 3 L Urine Barbiturates Neg Ur Phencyclidine (PCP) Neg U Amphetamin/Meth Scrn Neg MDMA (Ecstasy) Screen Neg U Benzodiazepines Scrn Neg Ur Cocaine Metabolite Neg U Marijuana (THC) Screen Neg Ethyl Alcohol mg/dL < 10.0 SARS-CoV-2, RNA, NAAT NEGATIVE Current Inpatient Medications Current Inpatient Medications: Current Inpatient Medications Acetaminophen (Acetaminophen 325 Mg Tab) 650 mg PO Q4H PRN PRN Reason: Headache or Minor Fever Stop: 08/16/25 19:44 Last Admin: 07/17/25 20:15 Dose: 650 mg Al Hydrox/Mg Hydrox/Simethicone (Aluminum/Magnesium Susp 30 Ml Udc) 30 ml PO Q4H PRN PRN Reason: GI Upset Stop: 08/16/25 19:44 Aripiprazole (Aripiprazole 5 Mg Tab) 2.5 mg PO BID PRN PRN Reason: Psychosis Stop: 08/16/25 19:49 Last Admin: 07/17/25 20:14 Dose: 2.5 mg Aspirin (Aspirin 81 Mg Ectab) 81 mg PO QAM GURMEET Stop: 08/17/25 08:59 Bismuth Subsalicylate (Bismuth Subsalicylate 262 Mg Chew) 2 tab PO Q30M PRN PRN Reason: Loose Stool/Diarrhea Stop: 08/16/25 19:44 Clopidogrel Bisulfate (Clopidogrel Bisulfate 75 Mg Tab) 75 mg PO DAILY GURMEET Stop: 08/17/25 08:59 Cyanocobalamin (Cyanocobalamin (B-12) 500 Mcg Tablet) 1,000 mcg PO DAILY GURMEET Stop: 08/17/25 08:59 Diltiazem HCl (Diltiazem Hcl 300 Mg Capcr) 300 mg PO HS GURMEET Stop: 08/17/25 21:59 Ferrous Sulfate (Ferrous Sulfate 325 Mg Tab) 325 mg PO Q2D@0900 [facility] Stop: 08/18/25 08:59 Fluoxetine HCl (Fluoxetine Hcl 10 Mg Cap) 10 mg PO DAILY GURMEET Stop: 08/17/25 08:59 Hydroxyzine HCl (Hydroxyzine Hcl 25 Mg Tab) 50 mg PO HSZ PRN PRN Reason: Insomnia Stop: 08/16/25 19:44 Hydroxyzine HCl (Hydroxyzine Hcl 25 Mg Tab) 25 mg PO Q4H PRN PRN Reason: Anxiety Stop: 08/16/25 19:44 Isosorbide Mononitrate (Isosorbide [place] Extended Rel 60 Mg Tabcr) 120 mg PO BID GURMEET Stop: 08/17/25 08:59 Lorazepam (Lorazepam 0.5 Mg Tab) 0.5 mg PO HS GURMEET Stop: 08/16/25 21:59 Last Admin: 07/17/25 21:54 Dose: 0.5 mg Losartan Potassium (Losartan Potassium 50 Mg Tab) 100 mg PO DAILY GURMEET Stop: 08/17/25 08:59 Magnesium Hydroxide (Magnesium Hydroxide Susp 30 Ml Udc) 30 ml PO DAILY PRN PRN Reason: Constipation Stop: 08/16/25 19:44 Metformin HCl (Metformin Hcl 500 Mg Tab) 500 mg PO HS GURMEET Stop: 08/16/25 21:59 Last Admin: 07/17/25 21:17 Dose: 500 mg Metoprolol Succinate (Metoprolol Succ 50mg Ext Rel Tab) 150 mg PO HS GURMEET Stop: 08/17/25 21:59 Nitroglycerin (Nitroglycerin Sl 0.4 Mg/Tab Tab) 0.4 mg SL Q5M PRN PRN Reason: chest pain Stop: 08/16/25 20:41 Last Admin: 07/17/25 21:08 Dose: 0.4 mg Pantoprazole Sodium (Pantoprazole 40 Mg Tab) 40 mg PO DAILY GURMEET Stop: 08/17/25 08:59 Ranolazine (Ranolazine 500 Mg Er Tab) 500 mg PO BID GURMEET Stop: 08/16/25 20:59 Last Admin: 07/17/25 21:16 Dose: 500 mg Rosuvastatin Calcium (Rosuvastatin Calcium 20 Mg Tab) 40 mg PO HS GURMEET Stop: 08/16/25 21:59 Last Admin: 07/17/25 21:17 Dose: 40 mg Sodium Chloride (Sodium Chloride 0.65% Na Soln 45 Ml ([place])) 1 - 2 sprays NA PRN PRN PRN Reason: Nasal Dryness/Congestion Stop: 08/16/25 19:44
[2025-07-18] MEDS: CLOPIDOGREL BISULFATE 75 MG TAB PO SCH (08:55)
[2025-07-18] MEDS: CYANOCOBALAMIN (B-12) 500 MCG TABLET PO SCH (08:55)
[2025-07-18] MEDS: ISOSORBIDE MONO EXTENDED REL 60 MG TABCR PO SCH (08:55)
[2025-07-18] MEDS: ASPIRIN 81 MG ECTAB PO SCH (08:56)
[2025-07-18] MEDS: LOSARTAN POTASSIUM 50 MG TAB PO SCH (08:56)
[2025-07-18] MEDS ORDERED: LORazepam 0.5 MG TAB PO SCH (09:00)
--- NOTE | 2025-07-18 18:20 | Electrocardiogram Report ---
Test Reason : Blood Pressure : */* mmHG Vent. Rate : 64 BPM Atrial Rate : 64 BPM P-R Int : 152 ms QRS Dur : 76 ms QT Int : 406 ms P-R-T Axes : 50 12 -12 degrees QTcB Int : 418 ms Normal sinus rhythm T wave abnormality, consider anterolateral ischemia Abnormal ECG When compared with ECG of 09-Jul-2025 09:51, (unconfirmed) No significant change was found Confirmed by Santi Dong ([id number] on 07/18/2025 6:20:19 PM Referred By: REFERRED SELF Confirmed By: Santi Dong
[2025-07-18] MEDS: METOPROLOL SUCC 50MG EXT REL TAB PO SCH (20:49)
[2025-07-19] MEDS: FERROUS SULFATE 325 MG TAB PO SCH (08:55)
--- NOTE | 2025-07-19 08:59 | Psychiatric Progress Note ---
Date of Service July 19, 2025 Impression / Recommendations Impression JORGE FRANCO is a 50-year-old woman who currently lives in [place] alone, has a history of chronic hallucinations, depression, anxiety, PTSD, possible bipolar disorder, and was admitted on 07/17/25 19:36 on a 201 voluntary commitment for psychosis. Diagnostically consistent with unspecified psychosis with differential including acute exacerbation of primary psychotic disorder vs exacerbation of PTSD versus mood disorder or MDD with psychotic features vs substance-withdrawal after stopping cannabis use recently. No current symptoms to suggest hypomania nor rosa elena. In terms of her insomnia has a history of BARBARA and unclear CPAP adherence which if untreated can certainly contribute to insomnia and worsen depression. A: Ongoing command hallucinations with ego-dystonic SI. Discussed medication treatment options in detail, given low BP will not consider doxazosin/prazosin at this time. Discussed risks, benefits and alternatives. Patient would like to start and consented to abilify for hallucinations/psychosis and potential off- label mood benefits. If well tolerated can consider mirtazapine in the future to help further with mood symptoms and insomnia. Reviewed side effects including but not limited to: movement (TD, NMS), cardiac (QTc prolongation), and metabolic (stroke, insulin resistance, increased risk for cardiac issues/PA) and necessity for fasting lipid and glucose labwork and AIMS done with score of 0. Reviewed HbA1c stable and fasting lipid panel notable for elevated cholesterol and LDL, she knows this and still wants to pursue abilify in spite of this. She is on Crestor. MNPR-hallucinations, paranoia Overall, I spent a total of 50 minutes on this case including meeting with the patient, reviewing the chart, nursing report, multidisciplinary team meeting, orders, and documentation. (1) Unspecified psychosis not due to a substance or known physiological condition: (2) Auditory hallucination: (3) Depression with suicidal ideation: (4) Depression: (5) Anxiety disorder: (6) Post-traumatic stress disorder: (7) Night terrors: Plan 07/19/2025: -Discontinue fluoxetine -Start abilify 2mg daily today and increase to 5mg tomorrow -Consider checking Zn, B vitamins if taste issues persist given poor po intake over recent months due to nonspecific GI symptoms (further reason why mirtazapine might be beneficial) 07/18/2025: The patient was admitted to the [facility] (locked inpatient mental health unit) on q15 min checks (behavioral with suicide precautions) for safety. The patient will participate in group, recreational, and milieu therapies and will be offered additional individual and family sessions as clinically appropriate. -Consider starting doxazosin 2mg HS, will review with cardiology -Continue fluoxetine 10mg daily for now -Continue Lorazepam 0.5mg HS -Work to get records from her outpatient measurement psychologist to review past psychiatric medication trials Inventory Assets Strengths: supportive relationships, willing to get treatment Needs: safety and stabilization, medication adjustment, additional coping skills, increased outpatient services Suicide Risk Level Suicide Risk Level: High-Moderate (q15 min suicide checks) (ego dystonic hallucinations with SI but feels safe in the hospital and feels able to ask for support) Risk Factors Assessment Male: No : No Do You Have Access To A Gun?: No Health Problems: Yes Mental Health Diagnoses: Yes Substance Use Disorders: No Previous Attempt: No Family History of Suicide: No Previous Psychiatric Hospitalization: Yes Hopelessness: No Protective Factors Assessment Responsible for Young Children: No Employed: No Stable Relationships: Yes Supportive Family: Yes Good Rapport with Provider: Yes Interval History Identifying Information JORGE FRANCO is a 50-year-old woman who currently lives in [place] alone, has a history of chronic hallucinations, depression, anxiety, PTSD, possible bipolar disorder, and was admitted on 07/17/25 19:36 on a 201 voluntary commitment for psychosis. Chief Complaint "I just want the voices to stop". Review of Systems Sleep Information Total Hours of Sleep: 6.25 Meal Information Percent Meal Consumed - Breakfast: 0 Percent Meal Consumed - Lunch: 100 Percent Meal Consumed - Dinner: 10 Subjective Subjective Patient was seen & assessed and interval progress reviewed with treatment team. Isolative yesterday. Did not attend any groups. Not eating much. Low BP this morning but no symptoms related to this. Today she reports ongoing voices which at times tell her to kill herself but are less intense than the voice that woke her a few days ago. She continues to feel safe here in the hospital. Has been going to groups to "try not to think about" the voices. She is surprised about her low BP this morning as she notes it's never been low and usually runs high, she denies any symptoms related to this. Reviewed that we held one of her BP medications. We discuss medication options as doxazosin at not a good option at this point given her low BP this morning. She recalls having a poor response to sertraline in the past. She'd like to start abilify to focus on trying to reduce the voices. Discussed potential future option to consider mirtazapine for insomnia/depression. Physical Exam Psychiatric Orientation: alert, oriented x 3 and + guarded Apperance: appropriately dressed and appropriately groomed Eye Contact: + fair eye contact Motor Behavior: no abnormal motor movements Speech: normal rate/rhythm/volume of speech Affect: + blunted affect Mood: + depressed mood and + anxious mood Thought Process: goal directed thought process and + concrete thought process Thought Content: + paranoid Suicidal Thoughts: denies suicidal plan and denies suicidal intent; + reports suicidal thoughts (ego-dystonic from hallucinations) Homicidal Thoughts: denies homicidal thoughts Hallucinations: + auditory hallucinations, + visual hallucinations and + gustatory hallucinations (wonder if contributing to changes in taste?) Cognition: recent memory grossly intact, remote memory grossly intact, attention grossly intact and language grossly intact Estimated Intelligence: consistent with education level Insight: + fair insight Judgment: + fair judgement Vital Signs (Past 24 Hours) Last Vital Signs Temp 36.6 C 07/19/25 06:25 Pulse 54 L 07/19/25 08:44 Resp 20 07/19/25 06:25 BP 90/59 L 07/19/25 08:44 Pulse Ox 99 07/19/25 06:25 O2 Del Method Room Air 07/19/25 06:25 Results & Data ([facility] [place]) Current Inpatient Medications Current Inpatient Medications: Current Inpatient Medications Acetaminophen (Acetaminophen 325 Mg Tab) 650 mg PO Q4H PRN PRN Reason: Headache or Minor Fever Stop: 08/16/25 19:44 Last Admin: 07/17/25 20:15 Dose: 650 mg Al Hydrox/Mg Hydrox/Simethicone (Aluminum/Magnesium Susp 30 Ml Udc) 30 ml PO Q4H PRN PRN Reason: GI Upset Stop: 08/16/25 19:44 Aripiprazole (Aripiprazole 5 Mg Tab) 2.5 mg PO BID PRN PRN Reason: Psychosis Stop: 08/16/25 19:49 Last Admin: 07/17/25 20:14 Dose: 2.5 mg Aspirin (Aspirin 81 Mg Ectab) 81 mg PO QAM [facility] Stop: 08/17/25 08:59 Last Admin: 07/18/25 08:56 Dose: 81 mg Bismuth Subsalicylate (Bismuth Subsalicylate 262 Mg Chew) 2 tab PO Q30M PRN PRN Reason: Loose Stool/Diarrhea Stop: 08/16/25 19:44 Clopidogrel Bisulfate (Clopidogrel Bisulfate 75 Mg Tab) 75 mg PO DAILY [facility] Stop: 08/17/25 08:59 Last Admin: 07/18/25 08:55 Dose: 75 mg Cyanocobalamin (Cyanocobalamin (B-12) 500 Mcg Tablet) 1,000 mcg PO DAILY [facility] Stop: 08/17/25 08:59 Last Admin: 07/18/25 08:55 Dose: 1,000 mcg Diltiazem HCl (Diltiazem Hcl 300 Mg Capcr) 300 mg PO HS [facility] Stop: 08/17/25 21:59 Last Admin: 07/18/25 20:47 Dose: 300 mg Ferrous Sulfate (Ferrous Sulfate 325 Mg Tab) 325 mg PO Q2D@0900 [facility] Stop: 08/18/25 08:59 Fluoxetine HCl (Fluoxetine Hcl 10 Mg Cap) 10 mg PO DAILY [facility] Stop: 08/17/25 08:59 Last Admin: 07/18/25 08:56 Dose: 10 mg Hydroxyzine HCl (Hydroxyzine Hcl 25 Mg Tab) 50 mg PO HSZ PRN PRN Reason: Insomnia Stop: 08/16/25 19:44 Hydroxyzine HCl (Hydroxyzine Hcl 25 Mg Tab) 25 mg PO Q4H PRN PRN Reason: Anxiety Stop: 08/16/25 19:44 Isosorbide Mononitrate (Isosorbide [place] Extended Rel 60 Mg Tabcr) 120 mg PO BID [facility] Stop: 08/17/25 08:59 Last Admin: 07/18/25 20:45 Dose: 120 mg Lorazepam (Lorazepam 0.5 Mg Tab) 0.5 mg PO HS [facility] Stop: 08/16/25 21:59 Last Admin: 07/18/25 20:48 Dose: 0.5 mg Losartan Potassium (Losartan Potassium 50 Mg Tab) 100 mg PO DAILY [facility] Stop: 08/17/25 08:59 Last Admin: 07/19/25 08:51 Dose: Not Given Magnesium Hydroxide (Magnesium Hydroxide Susp 30 Ml Udc) 30 ml PO DAILY PRN PRN Reason: Constipation Stop: 08/16/25 19:44 Metformin HCl (Metformin Hcl 500 Mg Tab) 500 mg PO HS [facility] Stop: 08/16/25 21:59 Last Admin: 07/18/25 20:48 Dose: 500 mg Metoprolol Succinate (Metoprolol Succ 50mg Ext Rel Tab) 150 mg PO HS [facility] Stop: 08/17/25 21:59 Last Admin: 07/18/25 20:49 Dose: 150 mg Nitroglycerin (Nitroglycerin Sl 0.4 Mg/Tab Tab) 0.4 mg SL Q5M PRN PRN Reason: chest pain Stop: 08/16/25 20:41 Last Admin: 07/17/25 21:08 Dose: 0.4 mg Pantoprazole Sodium (Pantoprazole 40 Mg Tab) 40 mg PO DAILY [facility] Stop: 08/17/25 08:59 Last Admin: 07/18/25 08:55 Dose: 40 mg Ranolazine (Ranolazine 500 Mg Er Tab) 500 mg PO BID [facility] Stop: 08/16/25 20:59 Last Admin: 07/18/25 20:47 Dose: 500 mg Rosuvastatin Calcium (Rosuvastatin Calcium 20 Mg Tab) 40 mg PO HS [facility] Stop: 08/16/25 21:59 Last Admin: 07/18/25 20:47 Dose: 40 mg Semaglutide (Semaglutide Inj 0.5 Mg/0.5ml (Wegovy)) 1 each SQ Fr@0900 [facility] Stop: 08/18/25 08:59 Sodium Chloride (Sodium Chloride 0.65% Na Soln 45 Ml ([place])) 1 - 2 sprays NA PRN PRN PRN Reason: Nasal Dryness/Congestion Stop: 08/16/25 19:44 Mental Health & Subst Abuse Tx Psychiatrist Name of Psychiatrist: Dr. Goetz at [facility] Psychiatrist's Date Of Appointment With Psychiatric Provider: Appt on 07/18/25 cancelled Psychiatric Appointment Comment: [place] [id number] Therapist Name of Therapist: Dang at the [facility] Therapist's Date of Therapist Appointment: Standing appts on Fridays at 1PM Therapy Appointment Comment: [place] [id number] Merchandise Carrier Name of Merchandise Carrier: [employer] [facility] Phone Number for Merchandise Carrier: [phone] Post Discharge Appointments Primary Care Physician Name Of Family Doctor/PCP: Dr. Callaway at [facility] Primary Care Contact Information Discharge Discharge Address: [address] [place] [address] [place] [id number]
[2025-07-19] MEDS: SEMAGLUTIDE 0.5 MG/0.5 ML SQ SCH (09:03)
[2025-07-20] MEDS: ARIPiprazole 5 MG TAB PO SCH (08:48)
[2025-07-20] MEDS ORDERED: LORazepam 0.5 MG TAB PO PRN (16:00)
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
[2025-07-20] MEDS: LORazepam 1 MG TAB PO SCH (21:02)
--- NOTE | 2025-07-21 15:05 | Psychiatric Progress Note ---
Date of Service July 21, 2025 Impression / Recommendations Impression JORGE FRANCO is a 50-year-old woman who currently lives in [place] alone, has a history of chronic hallucinations, depression, anxiety, PTSD, possible bipolar disorder, and was admitted on 07/17/25 19:36 on a 201 voluntary commitment for psychosis. Diagnostically consistent with unspecified psychosis with differential including acute exacerbation of primary psychotic disorder vs exacerbation of PTSD versus mood disorder or MDD with psychotic features vs substance-withdrawal after stopping cannabis use recently. No current symptoms to suggest hypomania nor rosa elena. In terms of her insomnia has a history of BARBARA and unclear CPAP adherence which if untreated can certainly contribute to insomnia and worsen depression. A: Presents an improvement in anxious ruminations however continues to be in a depressed state. Ongoing distressing dreams. Attending groups and engaging in self-care. MNPR-hallucinations, paranoia Overall, I spent a total of 30 minutes on this case including meeting with the patient, reviewing the chart, nursing report, multidisciplinary team meeting, orders, and documentation. (1) Unspecified psychosis not due to a substance or known physiological condition: (2) Auditory hallucination: (3) Depression with suicidal ideation: (4) Depression: (5) Anxiety disorder: (6) Post-traumatic stress disorder: (7) Night terrors: Plan 07/21/2025: Continue medications and treatment plan 07/20/2025: Increase lorazepam to 1 mg at bedtime 07/19/2025: -Discontinue fluoxetine -Start abilify 2mg daily today and increase to 5mg tomorrow -Consider checking Zn, B vitamins if taste issues persist given poor po intake over recent months due to nonspecific GI symptoms (further reason why mirtazapine might be beneficial) 07/18/2025: The patient was admitted to the [facility] ([facility] mental health unit) on q15 min checks (behavioral with suicide precautions) for safety. The patient will participate in group, recreational, and milieu therapies and will be offered additional individual and family sessions as clinically appropriate. -Consider starting doxazosin 2mg HS, will review with cardiology -Continue fluoxetine 10mg daily for now -Continue Lorazepam 0.5mg HS -Work to get records from her outpatient psychiatry adult physician to review past psychiatric medication trials Inventory Assets Strengths: supportive relationships, willing to get treatment Needs: safety and stabilization, medication adjustment, additional coping skills, increased outpatient services Suicide Risk Level Suicide Risk Level: High-Moderate (q15 min suicide checks) (ego dystonic hallucinations with SI but feels safe in the hospital and feels able to ask for support) Risk Factors Assessment Male: No : No Do You Have Access To A Gun?: No Health Problems: Yes Mental Health Diagnoses: Yes Substance Use Disorders: No Previous Attempt: No Family History of Suicide: No Previous Psychiatric Hospitalization: Yes Hopelessness: No Protective Factors Assessment Responsible for Young Children: No Employed: No Stable Relationships: Yes Supportive Family: Yes Good Rapport with Provider: Yes Interval History Identifying Information JORGE FRANCO is a 50-year-old woman who currently lives in [place] alone, has a history of chronic hallucinations, depression, anxiety, PTSD, possible bipolar disorder, and was admitted on 07/17/25 19:36 on a 201 voluntary commitment for psychosis. Chief Complaint Anxiety, nightmares Review of Systems Sleep Information Total Hours of Sleep: 7.5 Meal Information Percent Meal Consumed - Breakfast: 100 Percent Meal Consumed - Lunch: 50 Percent Meal Consumed - Dinner: 0 Subjective Subjective Patient was seen & assessed and interval progress reviewed with treatment team nursing and social work Overnight presented a flat affect. Engaging in self-care. Presented disrupted sleep. She reports feeling tired today. She woke up at 2 AM and was unable to fall back asleep. Complains of distressing nightmares. Endorses low energy and lack of appetite. Reports physical symptoms of anxiety such as shaking and being "jumpy". Reports less anxious ruminations on Abilify however feels more tired. Has been isolating. Physical Exam Mental Examination Appearance: Well Groomed Eye Contact: Sporadic Contact Motor Behavior: Slowed Speech: Normal Mood: Anxious Affect: Anxious Thought Process: Intact and Linear Thought Content: Racing Hallucinations: Auditory Insight: Fair Judgement: Fair Vital Signs (Past 24 Hours) Last Vital Signs Temp 36.8 C 07/21/25 06:17 Pulse 76 07/21/25 06:18 Resp 16 07/21/25 06:17 BP 110/66 07/21/25 06:18 Pulse Ox 99 07/20/25 20:21 O2 Del Method Room Air 07/20/25 20:21 Results & Data (U) Current Inpatient Medications Current Inpatient Medications: Current Inpatient Medications Acetaminophen (Acetaminophen 325 Mg Tab) 650 mg PO Q4H PRN PRN Reason: Headache or Minor Fever Stop: 08/16/25 19:44 Last Admin: 07/19/25 15:43 Dose: 650 mg Al Hydrox/Mg Hydrox/Simethicone (Aluminum/Magnesium Susp 30 Ml Udc) 30 ml PO Q4H PRN PRN Reason: GI Upset Stop: 08/16/25 19:44 Aripiprazole (Aripiprazole 5 Mg Tab) 2.5 mg PO BID PRN PRN Reason: Psychosis Stop: 08/16/25 19:49 Last Admin: 07/17/25 20:14 Dose: 2.5 mg Aripiprazole (Aripiprazole 5 Mg Tab) 5 mg PO QAM [facility] Stop: 08/19/25 08:59 Last Admin: 07/21/25 08:13 Dose: 5 mg Aspirin (Aspirin 81 Mg Ectab) 81 mg PO QAM [facility] Stop: 08/17/25 08:59 Last Admin: 07/21/25 08:13 Dose: 81 mg Bismuth Subsalicylate (Bismuth Subsalicylate 262 Mg Chew) 2 tab PO Q30M PRN PRN Reason: Loose Stool/Diarrhea Stop: 08/16/25 19:44 Clopidogrel Bisulfate (Clopidogrel Bisulfate 75 Mg Tab) 75 mg PO DAILY [facility] Stop: 08/17/25 08:59 Last Admin: 07/21/25 08:14 Dose: 75 mg Cyanocobalamin (Cyanocobalamin (B-12) 500 Mcg Tablet) 1,000 mcg PO DAILY [facility] Stop: 08/17/25 08:59 Last Admin: 07/21/25 08:14 Dose: 1,000 mcg Diltiazem HCl (Diltiazem Hcl 300 Mg Capcr) 300 mg PO HS [facility] Stop: 08/17/25 21:59 Last Admin: 07/20/25 21:02 Dose: Not Given Ferrous Sulfate (Ferrous Sulfate 325 Mg Tab) 325 mg PO Q2D@0900 [facility] Stop: 08/18/25 08:59 Last Admin: 07/21/25 08:14 Dose: 325 mg Hydroxyzine HCl (Hydroxyzine Hcl 25 Mg Tab) 50 mg PO HSZ PRN PRN Reason: Insomnia Stop: 08/16/25 19:44 Hydroxyzine HCl (Hydroxyzine Hcl 25 Mg Tab) 25 mg PO Q4H PRN PRN Reason: Anxiety Stop: 08/16/25 19:44 Isosorbide Mononitrate (Isosorbide [place] Extended Rel 60 Mg Tabcr) 120 mg PO BID [facility] Stop: 08/17/25 08:59 Last Admin: 07/21/25 08:14 Dose: 120 mg Lorazepam (Lorazepam 1 Mg Tab) 1 mg PO HS [facility] Stop: 08/19/25 21:59 Last Admin: 07/20/25 21:02 Dose: 1 mg Lorazepam (Lorazepam 0.5 Mg Tab) 0.5 mg PO DAILY PRN PRN Reason: Anxiety Stop: 08/19/25 15:59 Losartan Potassium (Losartan Potassium 50 Mg Tab) 100 mg PO DAILY [facility] Stop: 08/17/25 08:59 Last Admin: 07/21/25 08:14 Dose: 100 mg Magnesium Hydroxide (Magnesium Hydroxide Susp 30 Ml Udc) 30 ml PO DAILY PRN PRN Reason: Constipation Stop: 08/16/25 19:44 Metformin HCl (Metformin Hcl 500 Mg Tab) 500 mg PO HS [facility] Stop: 08/16/25 21:59 Last Admin: 07/20/25 21:02 Dose: 500 mg Metoprolol Succinate (Metoprolol Succ 50mg Ext Rel Tab) 150 mg PO HS [facility] Stop: 08/17/25 21:59 Last Admin: 07/20/25 21:02 Dose: 150 mg Nitroglycerin (Nitroglycerin Sl 0.4 Mg/Tab Tab) 0.4 mg SL Q5M PRN PRN Reason: chest pain Stop: 08/16/25 20:41 Last Admin: 07/17/25 21:08 Dose: 0.4 mg Pantoprazole Sodium (Pantoprazole 40 Mg Tab) 40 mg PO DAILY [facility] Stop: 08/17/25 08:59 Last Admin: 07/21/25 08:14 Dose: 40 mg Ranolazine (Ranolazine 500 Mg Er Tab) 500 mg PO BID [facility] Stop: 08/16/25 20:59 Last Admin: 07/21/25 08:14 Dose: 500 mg Rosuvastatin Calcium (Rosuvastatin Calcium 20 Mg Tab) 40 mg PO HS [facility] Stop: 08/16/25 21:59 Last Admin: 07/20/25 21:02 Dose: 40 mg Semaglutide (Semaglutide Inj 0.5 Mg/0.5ml (Jagdeepgovy)) 1 each SQ Fr@0900 [facility] Stop: 08/18/25 08:59 Last Admin: 07/19/25 09:03 Dose: 1 each Sodium Chloride (Sodium Chloride 0.65% Na Soln 45 Ml ([place])) 1 - 2 sprays NA PRN PRN PRN Reason: Nasal Dryness/Congestion Stop: 08/16/25 19:44 Mental Health & Subst Abuse Tx Psychiatrist Name of Psychiatrist: Dr. Goetz at [facility] Psychiatrist's Date Of Appointment With Psychiatric Provider: Appt on 07/18/25 cancelled Psychiatric Appointment Comment: [address], [place] [address] Therapist Name of Therapist: Dang at the [facility] Therapist's Date of Therapist Appointment: Standing appts on Fridays at 1PM Therapy Appointment Comment: [address] [place] [address] [employer] Teacher Name of Elementary School Teacher: [employer] Phone Number for Elementary School Teacher: [phone] Post Discharge Appointments Primary Care Physician Name Of Family Doctor/PCP: Dr. Dinora Callaway at [facility] Primary Care Contact Information Discharge Discharge Address: [address] [place] [id number]
[2025-07-22 06:25] VITALS: RESP 18
--- NOTE | 2025-07-22 15:18 | Psychiatric Progress Note ---
Date of Service July 22, 2025 Impression / Recommendations Impression JORGE FRANCO is a 50-year-old woman who currently lives in [place] alone, has a history of chronic hallucinations, depression, anxiety, PTSD, possible bipolar disorder, and was admitted on 07/17/25 19:36 on a 201 voluntary commitment for psychosis. Diagnostically consistent with unspecified psychosis with differential including acute exacerbation of primary psychotic disorder vs exacerbation of PTSD versus mood disorder or MDD with psychotic features vs substance-withdrawal after stopping cannabis use recently. No current symptoms to suggest hypomania nor rosa elena. In terms of her insomnia has a history of BARBARA and unclear CPAP adherence which if untreated can certainly contribute to insomnia and worsen depression. A: Patient continues to have sleep onset and maintenance dysfunction. Improved anxious ruminations with aripiprazole. Will schedule aripiprazole at night given sedation side effect. Appears auditory perceptions are mood and anxiety driven. Patient may benefit from increased community engagement through day programs and home health care given physical limitations. MNPR-hallucinations, paranoia Overall, I spent a total of 30 minutes on this case including meeting with the p atient, reviewing the chart, nursing report, multidisciplinary team meeting, orders, and documentation. (1) Unspecified psychosis not due to a substance or known physiological condition: (2) Auditory hallucination: (3) Depression with suicidal ideation: (4) Depression: (5) Anxiety disorder: (6) Post-traumatic stress disorder: (7) Nightmares associated with chronic post-traumatic stress disorder: Plan 07/22/2025: Schedule aripiprazole at bedtime 07/21/2025: Continue medications and treatment plan 07/20/2025: Increase lorazepam to 1 mg at bedtime 07/19/2025: -Discontinue fluoxetine -Start abilify 2mg daily today and increase to 5mg tomorrow -Consider checking Zn, B vitamins if taste issues persist given poor po intake over recent months due to nonspecific GI symptoms (further reason why mirtazapine might be beneficial) 07/18/2025: The patient was [facility] the [facility] inpatient mental health unit) on q15 min checks (behavioral with suicide precautions) for safety. The patient will participate in group, recreational, and milieu therapies and will be offered additional individual and family sessions as clinically appropriate. -Consider starting doxazosin 2mg HS, will review with cardiology -Continue fluoxetine 10mg daily for now -Continue Lorazepam 0.5mg HS -Work to get records from her outpatient psychiatric nurse practitioner to review past psychiatric medication trials Inventory Assets Strengths: supportive relationships, willing to get treatment Needs: safety and stabilization, medication adjustment, additional coping skills, increased outpatient services Suicide Risk Level Suicide Risk Level: High-Moderate (q15 min suicide checks) (ego dystonic hallucinations with SI but feels safe in the hospital and feels able to ask for support) Risk Factors Assessment Male: No : No Do You Have Access To A Gun?: No Health Problems: Yes Mental Health Diagnoses: Yes Substance Use Disorders: No Previous Attempt: No Family History of Suicide: No Previous Psychiatric Hospitalization: Yes Hopelessness: No Protective Factors Assessment Responsible for Young Children: No Employed: No Stable Relationships: Yes Supportive Family: Yes Good Rapport with Provider: Yes Interval History Identifying Information JORGE FRANCO is a 50-year-old woman who currently lives in [place] alone, has a history of chronic hallucinations, depression, anxiety, PTSD, possible bipolar disorder, and was admitted on 07/17/25 19:36 on a 201 voluntary commitment for psychosis. Chief Complaint Anxiety, nightmares, insomnia, auditory hallucinations Review of Systems Sleep Information Total Hours of Sleep: 7.75 Meal Information Percent Meal Consumed - Breakfast: 0 Percent Meal Consumed - Lunch: 50 Percent Meal Consumed - Dinner: 25 Subjective Subjective Patient was seen & assessed and interval progress reviewed with treatment team nursing and social work Slept 7.25 hours. Nursing notes patient has been more social. Rates mood 7 out of 10. On interview she reports feeling tired and has been this way the past few days. She did not sleep well and had no distressing dreams. Reports an improvement in anxious ruminations. Reports voices are still instructing self- harm however they have improved and she is able to ignore them. Reports they were initially background noises but then evolved to become a female voice that she does not recognize. Voices are worse with stress and anxiety. Denies having any chest pain or shortness of breath. Denies SI. Physical Exam Mental Examination Appearance: Well Groomed Eye Contact: Sporadic Contact Motor Behavior: Slowed Speech: Normal Mood: Anxious Affect: Anxious Thought Process: Intact and Linear Thought Content: Racing Hallucinations: Auditory Insight: Fair Judgement: Fair Vital Signs (Past 24 Hours) Last Vital Signs Temp 36.8 C 07/22/25 06:24 Pulse 73 07/22/25 06:25 Resp 18 07/22/25 06:24 BP 107/72 07/22/25 06:25 Pulse Ox 97 07/21/25 19:37 O2 Del Method Room Air 07/21/25 19:37 Results & Data ([facility]) Current Inpatient Medications Current Inpatient Medications: Current Inpatient Medications Acetaminophen (Acetaminophen 325 Mg Tab) 650 mg PO Q4H PRN PRN Reason: Headache or Minor Fever Stop: 08/16/25 19:44 Last Admin: 07/21/25 20:46 Dose: 650 mg Al Hydrox/Mg Hydrox/Simethicone (Aluminum/Magnesium Susp 30 Ml Udc) 30 ml PO Q4H PRN PRN Reason: GI Upset Stop: 08/16/25 19:44 Aripiprazole (Aripiprazole 5 Mg Tab) 2.5 mg PO BID PRN PRN Reason: Psychosis Stop: 08/16/25 19:49 Last Admin: 07/17/25 20:14 Dose: 2.5 mg Aripiprazole (Aripiprazole 5 Mg Tab) 5 mg PO HS [facility] Stop: 08/21/25 21:59 Aspirin (Aspirin 81 Mg Ectab) 81 mg PO QAM [facility] Stop: 08/17/25 08:59 Last Admin: 07/22/25 08:45 Dose: 81 mg Bismuth Subsalicylate (Bismuth Subsalicylate 262 Mg Chew) 2 tab PO Q30M PRN PRN Reason: Loose Stool/Diarrhea Stop: 08/16/25 19:44 Clopidogrel Bisulfate (Clopidogrel Bisulfate 75 Mg Tab) 75 mg PO DAILY [facility] Stop: 08/17/25 08:59 Last Admin: 07/22/25 08:45 Dose: 75 mg Cyanocobalamin (Cyanocobalamin (B-12) 500 Mcg Tablet) 1,000 mcg PO DAILY [facility] Stop: 08/17/25 08:59 Last Admin: 07/22/25 08:45 Dose: 1,000 mcg Diltiazem HCl (Diltiazem Hcl 300 Mg Capcr) 300 mg PO HS [facility] Stop: 08/17/25 21:59 Last Admin: 07/21/25 20:42 Dose: 300 mg Ferrous Sulfate (Ferrous Sulfate 325 Mg Tab) 325 mg PO Q2D@0900 [facility] Stop: 08/18/25 08:59 Last Admin: 07/21/25 08:14 Dose: 325 mg Hydroxyzine HCl (Hydroxyzine Hcl 25 Mg Tab) 50 mg PO HSZ PRN PRN Reason: Insomnia Stop: 08/16/25 19:44 Hydroxyzine HCl (Hydroxyzine Hcl 25 Mg Tab) 25 mg PO Q4H PRN PRN Reason: Anxiety Stop: 08/16/25 19:44 Isosorbide Mononitrate (Isosorbide [place] Extended Rel 60 Mg Tabcr) 120 mg PO BID [facility] Stop: 08/17/25 08:59 Last Admin: 07/22/25 08:46 Dose: 120 mg Lorazepam (Lorazepam 1 Mg Tab) 1 mg PO HS [facility] Stop: 08/19/25 21:59 Last Admin: 07/21/25 20:43 Dose: 1 mg Lorazepam (Lorazepam 0.5 Mg Tab) 0.5 mg PO DAILY PRN PRN Reason: Anxiety Stop: 08/19/25 15:59 Losartan Potassium (Losartan Potassium 50 Mg Tab) 100 mg PO DAILY [facility] Stop: 08/17/25 08:59 Last Admin: 07/22/25 08:46 Dose: 100 mg Magnesium Hydroxide (Magnesium Hydroxide Susp 30 Ml Udc) 30 ml PO DAILY PRN PRN Reason: Constipation Stop: 08/16/25 19:44 Metformin HCl (Metformin Hcl 500 Mg Tab) 500 mg PO HS [facility] Stop: 08/16/25 21:59 Last Admin: 07/21/25 20:41 Dose: 500 mg Metoprolol Succinate (Metoprolol Succ 50mg Ext Rel Tab) 150 mg PO HS [facility] Stop: 08/17/25 21:59 Last Admin: 07/21/25 20:42 Dose: 150 mg Nitroglycerin (Nitroglycerin Sl 0.4 Mg/Tab Tab) 0.4 mg SL Q5M PRN PRN Reason: chest pain Stop: 08/16/25 20:41 Last Admin: 07/17/25 21:08 Dose: 0.4 mg Pantoprazole Sodium (Pantoprazole 40 Mg Tab) 40 mg PO DAILY [facility] Stop: 08/17/25 08:59 Last Admin: 07/22/25 08:47 Dose: 40 mg Ranolazine (Ranolazine 500 Mg Er Tab) 500 mg PO BID [facility] Stop: 08/16/25 20:59 Last Admin: 07/22/25 08:47 Dose: 500 mg Rosuvastatin Calcium (Rosuvastatin Calcium 20 Mg Tab) 40 mg PO HS [facility] Stop: 08/16/25 21:59 Last Admin: 07/21/25 20:42 Dose: 40 mg Semaglutide (Semaglutide Inj 0.5 Mg/0.5ml ([place])) 1 each SQ Fr@0900 [facility] Stop: 08/18/25 08:59 Last Admin: 07/19/25 09:03 Dose: 1 each Sodium Chloride (Sodium Chloride 0.65% Na Soln 45 Ml ([place])) 1 - 2 sprays NA PRN PRN PRN Reason: Nasal Dryness/Congestion Stop: 08/16/25 19:44 Mental Health & Subst Abuse Tx Psychiatrist Name of Psychiatrist: Dr. Goetz at [facility] Psychiatrist's Date Of Appointment With Psychiatric Provider: 07/24/25 Time of Appointment with Psychiatrist: 2:30PM Psychiatric Appointment Comment: [phone], [place] [address] Therapist Name of Therapist: Dang at the [facility] Therapist's Date of Therapist Appointment: 08/02/25 Time of Therapist Appointment: 1PM Therapy Appointment Comment: [address] [place], [place] [address] Tube Turner Name of Tube Turner: [employer] Phone Number for Tube Turner: [phone] Case Management Appointment Comment: CM will contact you directly to schedule follow up appt Post Discharge Appointments Primary Care Physician Name Of Family Doctor/PCP: Dr. Dinora Callaway at [facility] Primary Care Contact Information Discharge Discharge Address: [address] [place] [address] [place] [address]
[2025-07-22 19:19] VITALS: O2SAT 99
[2025-07-22] MEDS: ARIPiprazole 5 MG TAB PO SCH (20:37)
[2025-07-23 06:21] VITALS: TEMP 98.4
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
[2025-07-23 10:59] VITALS: BP 130/84; PULSE 60
== END 2025-07-23 11:24 | disposition home or self-care (01) | DRG 882 ==
LOC: ED 14:26 → 3S 19:30